=== PATIENT | male | born 1970 | race Caucasian/White ===

== ENCOUNTER → 2016-06-23 | Outpatient (CLI) | payer MEDICARE | END | disposition home or self-care (01) | LOC: YCFC.O 08:51 | PROVIDERS: ATTEND Nurse Practitioner Family | DX: E03.8 Other specified hypothyroidism (principal); E11.8 Type 2 diabetes mellitus with unspecified complications; E78.2 Mixed hyperlipidemia ==

== ENCOUNTER 2016-07-28 19:25 | Emergency (ER) | payer MEDICARE ==
[2016-07-28] MEDS ORDERED: LIDOCAINE VIS-MYLANTA 30 ML UD PO ONE (19:47)
[2016-07-28] MEDS ORDERED: ONDANSETRON ODT 8 MG TAB SL SCH ×3 (20:00→23:45)
--- NOTE | 2016-07-28 20:18 | RAD ---
PROCEDURE: Chest,2 Views CLINICAL HISTORY: epigastric pain INDICATION: Same as above COMPARISON: 01/04/2015 TECHNIQUE: PA and and lateral chest radiographs were obtained. FINDINGS: The dual-chamber left-sided pacemaker wires are stable There are no discrete airspace infiltrates, pneumothoraces or pleural effusions. The pulmonary vascularity is normal The cardiomediastinal silhouette is stable. IMPRESSION: There is no acute pleural-parenchymal process seen in the imaged lung benito. Place of interpretation: [facility]. Electronically signed by: Sai Sosa MD 07/28/2016 8:17 PM CDT
--- NOTE | 2016-07-28 20:19 | RAD ---
PROCEDURE: Abdomen Flat Upright Clinical History: epigastric pain Indication: Same as above Comparison: Chest x-ray done on the same day Technique: 4.0 views of the abdomen and pelvis were done. Findings: There is no gross evidence of free air in the abdomen or the pelvis . The small and large bowel gas pattern does not show any evidence of obstruction, ileus or bowel wall thickening. There is no visualization of radiopaque calculi in the outline of the urinary tract. The visualized lung bases are unremarkable . There is mild constipation. Impression: Mild constipation without any small or large bowel obstruction or ileus Location of Interpretation: [id number] Electronically signed by: Sai Sosa MD 07/28/2016 8:18 PM CDT
[2016-07-28] MEDS ORDERED: PROCHLORPERAZINE INJ 10 MG/2 ML VIAL IV ONE (21:26)
[2016-07-28] MEDS ORDERED: SODIUM CHLORIDE 0.9% 1000ML 1,000 ML IVS ONE (21:44)
--- NOTE | 2016-07-28 22:23 | CT ---
PROCEDURE: Abdomen/Pelvis w/Contrast HISTORY: upper abd pain, n/v, leukocytosis Indication: Same as above Comparison: None . Technique: CT of the abdomen and pelvis was done with intravenous contrast. Images were obtained from the lung base to the level of the pubic symphysis in axial plane, followed by orthogonal sagittal and coronal reconstruction. Oral contrast was not given for the study. The patient was injected with contrast intravenously, without any documented immediate adverse reactions. This exam was performed according to our departmental dose-optimization program, which includes automated exposure control, adjustment of the mA and/or KV according to the patient's size and/or use of iterative reconstruction technique. FINDINGS: Images through the lung bases do not show any focal infiltrates or pleural effusions. The entire right flank is not included on the current study as a result of patient's body habitus There is mild dilatation of the proximal small bowel with normal caliber mid and distal small bowel and may represent developing small bowel obstruction/small bowel ileus and needs to be followed up The liver, gallbladder, pancreas, spleen and the bilateral adrenal glands appear unremarkable. The bilateral kidneys enhance with contrast in a normal fashion. The urinary bladder is unremarkable . The bilateral ureters and the bilateral periureteral soft tissues and fat planes are unremarkable. There is no CT evidence of acute appendicitis, pericecal inflammatory change or ileocecal mesenteric adenitis. The ileocecal junction appears unremarkable. There is no CT evidence of acute colonic diverticulitis or colitis or large bowel obstruction. The splenic and portal veins are of normal caliber, without any filling defects. There is no pathological lymphadenopathy in the retroperitoneum or in the pelvic region. There is no evidence of free fluid or free air in the abdomen or the pelvic region. There is no clinically significant abdominal aortic aneurysm. There is no clinically significant inguinal or ventral hernia. The visualized lumbar spine shows mild degenerative change at L5/S1 level . The paravertebral soft tissues are unremarkable. The remainder of the pelvic structures are unremarkable. IMPRESSION: The entire right flank is not included on the current study as a result of patient's body habitus There is mild dilatation of the proximal small bowel with normal caliber mid and distal small bowel and may represent developing small bowel obstruction/small bowel ileus and needs to be followed up . Location of Interpretation: [facility]iology Electronically signed by: Sai Sosa MD 07/28/2016 10:23 PM CDT
[2016-07-28] MEDS ORDERED: PROMETHAZINE HCL 25 MG TAB PO ONE (22:43)
[2016-07-28] MEDS ORDERED: PANTOPRAZOLE SODIUM IV 40 MG VIAL IV ONE (22:43)
--- NOTE | 2016-07-28 23:56 | ED.PDOC ---
History of Present Illness - General Chief Complaint: Abdominal Pain Stated Complaint: epigastric pain,weakness,dizziness Time Seen by Provider: 07/28/16 19:40 Source: patient Exam Limitations: no limitations - History of Present Illness Initial Comments: The patient is a 45-year-old male presenting to the emergency room secondary to severe epigastric and right upper quadrant abdominal pain. Abdominal discomfort started this morning with some nausea. He has thrown up approximately 5-7 times during the day. Abdominal pain and nausea became progressively worse as the day went on. He did have some diarrhea yesterday. No definite fevers. No chest pain. The abdominal pain is quite severe. No blood in the vomitus. No blood in the stool. No recent trauma. Severity: severe Improving Factors: nothing Worsening Factors: eating Associated Symptoms: diaphoresis, loss of appetite, malaise, nausea/vomiting, weakness Allergies/Adverse Reactions: Allergies NO KNOWN ALLERGY Allergy (Verified 01/04/15 18:02) Home Medications: Ambulatory Orders Aspirin [Familia Chewable Low Dose] 81 mg PO DAILY #0 11/10/12 Fluoxetine HCl [Prozac] 20 mg PO DAILY #0 11/10/12 Furosemide [Lasix] 20 mg PO DAILY #0 11/10/12 Potassium Chloride Tab [K-Dur] 20 meq PO DAILY #0 11/10/12 Atorvastatin Calcium [Lipitor] 40 mg PO DAILY 08/07/13 Carvedilol 25 mg PO BID 08/07/13 Spironolactone [Aldactone] 25 mg PO DAILY 08/07/13 Levothyroxine Sodium 150 mcg PO DAILY 01/04/15 Lisinopril [Prinivil] 20 mg PO DAILY 01/04/15 Metformin HCl 500 mg PO BID 01/04/15 Amoxicillin & Pot Clavulanate [Augmentin] 875 mg PO BID #20 tab 12/15/15 Beta Silva 12/15/15 Docusate Sodium [Stool Softener] 100 mg PO KVNG-OTH-DAY 12/15/15 Insulin Glargine [Lantus Solostar] 16 unit SC BEDTIME 12/15/15 Insulin Lispro [Humalog] 0 - 15 unit SUBCU TIDFDHS 12/15/15 Ondansetron [Zofran Odt] 4 mg PO Q4H PRN #10 tab 05/10/17 Review of Systems - Review of Systems Constitutional: States: malaise, weakness EENTM: States: no symptoms reported Respiratory: States: no symptoms reported Cardiology: States: no symptoms reported Gastrointestinal/Abdominal: States: abdominal pain, diarrhea, nausea, vomiting Genitourinary: States: no symptoms reported Musculoskeletal: States: no symptoms reported Skin: States: no symptoms reported Neurological: States: anxiety Endocrine: States: increased thirst All other Systems: No Change from Baseline Past Medical History (General) - Patient Medical History Hx Seizures: No Hx Stroke: No Hx Asthma: No Hx of COPD: No Hx Cardiac Disorders: Yes Hx Congestive Heart Failure: Yes Hx Pacemaker: Yes Hx Hypertension: Yes Hx Thyroid Disease: Yes Hx Diabetes: Yes Hx Gastroesophageal Reflux: Yes Hx MRSA: Yes MRSA Source:: Wound Surgical History: pacemaker - Vaccination History Hx Tetanus, Diphtheria Vaccination: No Hx Influenza Vaccination: Yes Hx Pneumococcal Vaccination: Yes - Social History Hx Tobacco Use: Yes Hx Chewing Tobacco Use: No Hx Alcohol Use: Yes - quit many years ago Hx Substance Use: Yes - quit many years ago Hx Physical Abuse: No Hx Emotional Abuse: No Hx Suspected Abuse: No Family Medical History - Family History Mother Living Status: Cause of : colon CA Hx Family Congestive Heart Failure: Yes Hx Family Hypertension: Yes Hx Family Diabetes: Yes Hx Family Cancer: Yes Father Living Status: Cause of : lung CA Hx Family Congestive Heart Failure: Yes Hx Family Hypertension: Yes Physical Exam - Physical Exam General Appearance: Alert, Obvious distress, Ill Appearing - vomiting Eye Exam: bilateral normal Ears, Nose, Throat: hearing grossly normal, normal ENT inspection, normal pharynx Neck: non-tender, full range of motion, supple Respiratory: chest non-tender, lungs clear, normal breath sounds, no respiratory distress, no accessory muscle use Cardiovascular/Chest: normal peripheral pulses, no edema, tachycardia Peripheral Pulses: radial,right: 2+, radial,left: 2+, dorsalis pedis,right: 2+, dorsalis pedis,left: 2+ Gastrointestinal/Abdominal: other - the patient has presented significant epigastric and right upper quadrant discomfort to palpation. Definite palpable masses. No bruising. 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 The patient received anti-emetics along with IV fluids and some Protonix. Over approximately 6-7 hours the patient's symptoms improved significantly. CT scan was reassuring. The patient needs to add Pepcid 20 mg twice daily to the stomach medication that he is already taking for one week. He needs to also get Maalox to use additionally for reflux symptoms as needed. He needs to keep well-hydrated. He needs to eat small meals and a bland diet. He needs to control his blood sugars tightly. He will be written for Zofran for as needed use to control vomiting. He needs to follow-up with his primary care doctor before the weekend. ER warnings were given for any acute worsening. - Results/Orders Results/Orders: Laboratory Tests 07/28/16 07/28/16 07/28/16 19:45 19:45 19:45 WBC 15.9 H RBC 5.56 Hgb 16.6 Hct 49.5 MCV 88.9 MCH 29.8 MCHC 33.5 RDW 14.1 Plt Count 325 MPV 8.2 Absolute Neuts (auto) 13.00 H Absolute Lymphs (auto) 2.00 Absolute Monos (auto) 0.80 Absolute Eos (auto) 0.10 Absolute Basos (auto) 0.10 Neutrophils % 81.5 H Lymphocytes % 12.7 L Monocytes % 5.0 Eosinophils % 0.5 L Basophils % 0.3 PT 11.5 INR 1.020 PTT (SP) 32.7 Sodium 134 L Potassium 4.5 Chloride 97 L Carbon Dioxide 27 Anion Gap 14.5 BUN 21 H Creatinine 1.02 BUN/Creatinine Ratio 20.6 H POC Glucose Random Glucose 201 H Serum Osmolality 276.9 Lactic Acid Calcium 9.3 Magnesium 1.5 L Total Bilirubin 1.0 AST 104 H ALT 120 H Alkaline Phosphatase 52 Creatine Kinase 74 CK-MB (CK-2) 1.8 CK-MB (CK-2) % Not Reportable Troponin I < 0.02 B-Natriuretic Peptide < 5.0 Serum Total Protein 8.3 H Albumin 4.5 Globulin 3.8 H Albumin/Globulin Ratio 1.2 Amylase 29 Lipase 26 07/28/16 07/28/16 19:55 21:55 WBC RBC Hgb Hct MCV MCH MCHC RDW Plt Count MPV Absolute Neuts (auto) Absolute Lymphs (auto) Absolute Monos (auto) Absolute Eos (auto) Absolute Basos (auto) Neutrophils % Lymphocytes % Monocytes % Eosinophils % Basophils % PT INR PTT (SP) Sodium Potassium Chloride Carbon Dioxide Anion Gap BUN Creatinine BUN/Creatinine Ratio POC Glucose 164 H Random Glucose Serum Osmolality Lactic Acid 1.9 Calcium Magnesium Total Bilirubin AST ALT Alkaline Phosphatase Creatine Kinase CK-MB (CK-2) CK-MB (CK-2) % Troponin I B-Natriuretic Peptide Serum Total Protein Albumin Globulin Albumin/Globulin Ratio Amylase Lipase x-ray shows nonspecific bowel gas pattern. CT scan of abdomen and pelvis shows mild dilation of the proximal small bowel. This is consistent possibly with an early ileus. Departure - Departure Clinical Impression: Gastroenteritis, Dehydration, mild Disposition: Discharge to Home or Self Care Condition: Fair Departure Forms: ED Discharge - Pt. Copy, Patient Portal Self Enrollment Instructions: DI for Viral Gastroenteritis -- Adult Diet: bland diet, diabetic diet Activity: increase activity as tolerated Referrals: Lizet Suero NP [Primary Care Provider] - 1-5 Days Prescriptions: Ondansetron [Zofran Odt] 4 mg PO Q4H PRN #10 tab PRN Reason: Vomiting Home Medications: Ambulatory Orders Aspirin [Familia Chewable Low Dose] 81 mg PO DAILY #0 11/10/12 Fluoxetine HCl [Prozac] 20 mg PO DAILY #0 11/10/12 Furosemide [Lasix] 20 mg PO DAILY #0 11/10/12 Potassium Chloride Tab [K-Dur] 20 meq PO DAILY #0 11/10/12 Atorvastatin Calcium [Lipitor] 40 mg PO DAILY 08/07/13 Carvedilol 25 mg PO BID 08/07/13 Spironolactone [Aldactone] 25 mg PO DAILY 08/07/13 Levothyroxine Sodium 150 mcg PO DAILY 01/04/15 Lisinopril [Prinivil] 20 mg PO DAILY 01/04/15 Metformin HCl 500 mg PO BID 01/04/15 Amoxicillin & Pot Clavulanate [Augmentin] 875 mg PO BID #20 tab 12/15/15 Beta Silva 12/15/15 Docusate Sodium [Stool Softener] 100 mg PO KVNG-OTH-DAY 12/15/15 Insulin Glargine [Lantus Solostar] 16 unit SC BEDTIME 12/15/15 Insulin Lispro [Humalog] 0 - 15 unit SUBCU TIDFDHS 12/15/15 Ondansetron [Zofran Odt] 4 mg PO Q4H PRN #10 tab 07/29/16 Additional Instructions: the patient is a 45-year-old male presenting secondary to nausea and vomiting and abdominal pain with some [id number] dehydration. The patient received anti-emetics along with IV fluids and some Protonix. Over approximately 6-7 hours the patient's symptoms improved significantly. CT scan was reassuring. The patient needs to add Pepcid 20 mg twice daily to the stomach medication that he is already taking for one week. He needs to also get Maalox to use additionally for reflux symptoms as needed. He needs to keep well-hydrated. He needs to eat small meals and a bland diet. He needs to control his blood sugars tightly. He will be written for Zofran for as needed use to control vomiting. He needs to follow-up with his primary care doctor before the weekend. ER warnings were given for any acute worsening. He should probably also hold his metformin and atorvastatin for the next 4 or 5 days to prevent complications from these medications.
[2016-07-29 01:05] VITALS: BP 138/79; TEMP 97.2; O2SAT 97
== END 2016-07-29 00:25 | disposition home or self-care (01) ==
LOC: ER 19:25
DX: Z87.891 Personal history of nicotine dependence (principal); I11.0 Hypertensive heart disease with heart failure; I50.9 Heart failure, unspecified; E11.9 Type 2 diabetes mellitus without complications; K21.9 Gastro-esophageal reflux disease without esophagitis; Z86.14 Personal history of Methicillin resistant Staphylococcus aureus infection; Z80.1 Family history of malignant neoplasm of trachea, bronchus and lung; Z80.0 Family history of malignant neoplasm of digestive organs; Z79.4 Long term (current) use of insulin; Z79.899 Other long term (current) drug therapy; Z79.82 Long term (current) use of aspirin
CPT/HCPCS: 36415; 71020; 74010; 74177; 80053; 82150; 82550; 82553; 82948; 83605; 83690; 83735; 83880; 84484; 85025; 85610; 85730; 87040; 93005; J0780; J7030; Q0169

== ENCOUNTER → 2016-09-04 | Outpatient (CLI) | payer MEDICARE | END | disposition home or self-care (01) | LOC: LAB.O 10:53 | PROVIDERS: ATTEND Nurse Practitioner Family | DX: E03.8 Other specified hypothyroidism (principal) ==

== ENCOUNTER → 2016-10-14 | Outpatient (CLI) | payer MEDICARE | END | disposition home or self-care (01) | LOC: YCFC.O 10:57 | PROVIDERS: ATTEND Nurse Practitioner Family | DX: E11.8 Type 2 diabetes mellitus with unspecified complications (principal); R74.8 Abnormal levels of other serum enzymes; E78.2 Mixed hyperlipidemia ==

== ENCOUNTER → 2016-12-14 | Outpatient (CLI) | payer MEDICARE | END | disposition home or self-care (01) | LOC: YCFC.O 09:28 | PROVIDERS: ATTEND Anesthesiology Pain Medicine | DX: Z79.891 Long term (current) use of opiate analgesic (principal) ==

== ENCOUNTER → 2016-12-24 | Outpatient (CLI) | payer MEDICARE ==
--- NOTE | 2016-12-26 18:15 | CT ---
Procedure: CT THORACIC SPINE WITHOUT IV CONTRAST Exam date: 12/24/2016 9:35 AM CDT Ordering Provider: Ubaldo Lauren Clinical Indication: THORACIC RADICULOPATHY Comparison: None Technique: Using a multislice scanner, sequential axial imaging was obtained of the thoracic spine. 2D sagittal and coronal reconstructed images were obtained. Findings: There is no acute fracture. Sagittal and coronal alignment is normal. Vertebral body heights and intervertebral disc spaces are normal. There is no osseous spinal canal nor neural foraminal narrowing. There is no lytic or sclerotic lesion. There is no paraspinal hematoma. The prevertebral soft tissues are normal. IMPRESSION 1. Negative CT scan of the lumbar spine. Electronically signed by: Vj May MD 12/26/2016 6:13 PM CDT
--- NOTE | 2016-12-26 18:16 | CT ---
Procedure: CT LUMBAR SPINE WITHOUT IV CONTRAST Exam date: 12/24/2016 9:35 AM CDT Ordering Provider: Ubaldo Lauren Clinical Indication: LUMBAR RADICULOPATHY Comparison: None Technique: Using a multislice scanner, sequential axial imaging was obtained of the lumbar spine. 2D sagittal and coronal reconstructed images were obtained. Findings: There is no acute fracture. Sagittal and coronal alignment is normal. Vertebral body heights are normal. Degenerative disc findings seen at L4-L5 with vacuum disc phenomenon and broad-based disc bulge at L5-S1. There is no osseous spinal canal nor neural foraminal narrowing. There is no lytic or sclerotic lesion. There is no paraspinal hematoma. The prevertebral soft tissues are normal. IMPRESSION 1. Mild lumbar spondylosis. Otherwise, nonacute CT scan of the lumbar spine. Electronically signed by: Vj May MD 12/26/2016 6:15 PM CDT
== END | disposition home or self-care (01) ==
LOC: CT 09:25
PROVIDERS: ATTEND Anesthesiology Pain Medicine
DX: M51.26 Other intervertebral disc displacement, lumbar region (principal); M54.14 Radiculopathy, thoracic region

== ENCOUNTER 2017-01-11 05:00 | Day surgery (SDC) | payer MEDICARE ==
[2017-01-11] MEDS ORDERED: SODIUM CHLORIDE 0.9% 10 ML VIAL ONE (10:55)
[2017-01-11] MEDS ORDERED: methylPREDNISolone ACETATE 80 MG/ML VIAL ONE (10:56)
[2017-01-11] MEDS ORDERED: LIDOCAINE 1% MPF 5 ML VIAL ONE (10:56)
[2017-01-11] MEDS: SODIUM BICARBONATE VIAL 50 MEQ/50 ML VIAL ONE ×2 (13:17→14:15)
[2017-01-11] MEDS ORDERED: BUPIVACAINE 0.25% INJ 30 ML VIAL INJ ONE (13:17)
[2017-01-11 13:32] VITALS: BP 119/82; TEMP 98.4; O2SAT 97
== END 2017-01-11 13:30 | disposition home or self-care (01) ==
LOC: AMB 05:00
PROVIDERS: ATTEND Anesthesiology Pain Medicine
DX: M51.16 Intervertebral disc disorders with radiculopathy, lumbar region (principal); M54.5 Low back pain; E03.9 Hypothyroidism, unspecified; E11.40 Type 2 diabetes mellitus with diabetic neuropathy, unspecified; E78.00 Pure hypercholesterolemia, unspecified; G47.33 Obstructive sleep apnea (adult) (pediatric); I42.9 Cardiomyopathy, unspecified; I11.0 Hypertensive heart disease with heart failure; I50.21 Acute systolic (congestive) heart failure; K21.9 Gastro-esophageal reflux disease without esophagitis; M54.14 Radiculopathy, thoracic region; Z68.42 Body mass index [BMI] 45.0-49.9, adult; E66.2 Morbid (severe) obesity with alveolar hypoventilation; Z87.891 Personal history of nicotine dependence; Z79.899 Other long term (current) drug therapy
CPT/HCPCS: 36415; 64483; 64484; 76000; 80053; 83036; 85025; J1030

== ENCOUNTER → 2017-01-26 | Outpatient (CLI) | payer MEDICARE | END | disposition home or self-care (01) | LOC: YCFC.O 15:50 | PROVIDERS: ATTEND Anesthesiology Pain Medicine | DX: Z79.891 Long term (current) use of opiate analgesic (principal) ==

== ENCOUNTER 2017-03-01 05:43 | Day surgery (SDC) | payer MEDICARE ==
[2017-03-01] MEDS ORDERED: SODIUM BICARBONATE VIAL 50 MEQ/50 ML VIAL ONE (11:23)
[2017-03-01] MEDS ORDERED: SODIUM CHLORIDE 0.9% 10 ML VIAL ONE (11:23)
[2017-03-01] MEDS ORDERED: methylPREDNISolone ACETATE 80 MG/ML VIAL ONE (11:23)
[2017-03-01] MEDS: LIDOCAINE 1% MPF 5 ML VIAL ONE ×2 (13:33→13:35)
[2017-03-01 14:09] VITALS: BP 172/99; TEMP 97.2; O2SAT 95
== END 2017-03-01 13:45 | disposition home or self-care (01) ==
LOC: AMB 05:43
PROVIDERS: ATTEND Anesthesiology Pain Medicine
DX: M51.16 Intervertebral disc disorders with radiculopathy, lumbar region (principal); M54.5 Low back pain; E03.9 Hypothyroidism, unspecified; E11.40 Type 2 diabetes mellitus with diabetic neuropathy, unspecified; E78.00 Pure hypercholesterolemia, unspecified; D64.9 Anemia, unspecified; F32.9 Major depressive disorder, single episode, unspecified; E66.2 Morbid (severe) obesity with alveolar hypoventilation; Z79.84 Long term (current) use of oral hypoglycemic drugs; Z68.42 Body mass index [BMI] 45.0-49.9, adult; G47.33 Obstructive sleep apnea (adult) (pediatric); I25.10 Atherosclerotic heart disease of native coronary artery without angina pectoris; I11.0 Hypertensive heart disease with heart failure; I50.21 Acute systolic (congestive) heart failure; K21.9 Gastro-esophageal reflux disease without esophagitis; I25.2 Old myocardial infarction; Z87.891 Personal history of nicotine dependence; Z79.899 Other long term (current) drug therapy
CPT/HCPCS: 62323; 76000; J1030

== ENCOUNTER 2019-01-04 10:07 | Emergency (ER) | payer MEDICARE ==
[2019-01-04] MEDS ORDERED: ASPIRIN (CHEWABLE) 81 MG TAB ONE (10:12)
[2019-01-04] MEDS ORDERED: NITROGLYCERIN 0.4 MG 25 EA TAB SL ONE ×2 (10:12→10:20)
[2019-01-04 10:16] VITALS: TEMP 98
[2019-01-04] MEDS ORDERED: SODIUM CHLORIDE 0.9% (FLUSH) 10 ML SYG IV PRN (10:20)
[2019-01-04] MEDS ORDERED: ONDANSETRON INJ 4 MG/2 ML VIAL IV ONE (10:20)
--- NOTE | 2019-01-04 10:24 | ED.PDOC ---
History of Present Illness - General Chief Complaint: Chest Pain/IA Stated Complaint: Chest pain, vomiting Time Seen by Provider: 01/04/19 10:20 Source: patient, RN notes reviewed, Vital Signs reviewed, family Exam Limitations: no limitations - History of Present Illness Timing/Duration: other - Started at 0500 awakening from sleep Severity/Quality: other - 08/29, sharp Location: central Chest Pain Radiation: no radiation Activities at Onset: sleep Prior Chest Pain/Cardiac Workup: cardiac cath, echocardiography, heart attack Improving Factors: nothing Worsening Factors: nothing Nitro Today/Relief: 0.4 mg x 1 Aspirin Treatment Today: 81 mg x 1 Associated Symptoms: nausea/vomiting Allergies/Adverse Reactions: Allergies NO KNOWN ALLERGY Allergy (Verified 01/04/15 18:02) Home Medications: Ambulatory Orders Aspirin [Familia Chewable Low Dose] 81 mg PO DAILY #0 11/10/12 Fluoxetine HCl [Prozac] 20 mg PO DAILY #0 11/10/12 Furosemide [Lasix] 20 mg PO DAILY #0 11/10/12 Potassium Chloride Tab [K-Dur] 20 meq PO DAILY #0 11/10/12 Atorvastatin Calcium [Lipitor] 40 mg PO DAILY 08/07/13 Carvedilol 25 mg PO BID 08/07/13 Spironolactone [Aldactone] 25 mg PO DAILY 08/07/13 Levothyroxine Sodium 150 mcg PO DAILY 01/04/15 Lisinopril [Prinivil] 20 mg PO DAILY 01/04/15 Metformin HCl 500 mg PO BID 01/04/15 Amoxicillin & Pot Clavulanate [Augmentin] 875 mg PO BID #20 tab 12/15/15 Beta Silva 12/15/15 Docusate Sodium [Stool Softener] 100 mg PO KVNG-OTH-DAY 12/15/15 Insulin Glargine [Lantus Solostar] 16 unit SC BEDTIME 12/15/15 Insulin Lispro [Humalog] 0 - 15 unit SUBCU TIDFDHS 12/15/15 Ondansetron [Zofran Odt] 4 mg PO Q4H PRN #10 tab 07/29/16 Review of Systems - Review of Systems Constitutional: States: no symptoms reported EENTM: States: no symptoms reported Respiratory: States: no symptoms reported Cardiology: States: see HPI Gastrointestinal/Abdominal: States: see HPI Genitourinary: States: no symptoms reported Musculoskeletal: States: no symptoms reported Skin: States: no symptoms reported Endocrine: States: no symptoms reported Past Medical History (General) - Patient Medical History Hx Seizures: No Hx Stroke: No Hx Asthma: No Hx of COPD: No Hx Cardiac Disorders: Yes - IA x 2; dyslipidemia Hx Congestive Heart Failure: Yes Hx Pacemaker: Yes - Pacemaker/defib Hx Hypertension: Yes Hx Thyroid Disease: Yes Hx Diabetes: Yes Hx Gastroesophageal Reflux: Yes Hx MRSA: No MRSA Source:: Wound Surgical History: pacemaker - Vaccination History Hx Tetanus, Diphtheria Vaccination: No Hx Influenza Vaccination: No Hx Pneumococcal Vaccination: Yes - Social History Hx Tobacco Use: Yes - Quit 2008 Hx Chewing Tobacco Use: No Hx Alcohol Use: No Hx Substance Use: Yes - quit many years ago Hx Physical Abuse: No Hx Emotional Abuse: No Hx Suspected Abuse: No Family Medical History - Family History Mother Living Status: Cause of : colon CA Hx Family Congestive Heart Failure: Yes Hx Family Hypertension: Yes Hx Family Diabetes: Yes Hx Family Cancer: Yes Father Living Status: Cause of : lung CA Hx Family Congestive Heart Failure: Yes Hx Family Hypertension: Yes Physical Exam - Physical Exam General Appearance: Alert, Comfortable Eyes, Ears, Nose, Throat Exam: normal ENT inspection Neck: full range of motion Respiratory: chest non-tender, lungs clear Cardiovascular/Chest: normal peripheral pulses, regular rate, rhythm Gastrointestinal/Abdominal: soft, other - obese pannus Extremity: normal range of motion 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 Had 2 repeat troponins which were unremarkable. EKG with LBBB but no criteria for Sgarbossa. Ddimer was elevated. CTA chest was not timed well for contrast but no large PE. Lower extremity doppler without DVT. Heart score 4. Patient's pain resolved here in the ER with nitro. I advised him to follow up with PCP and cardiology in the next week. He was given ER warnings for chest pain, hemoptysis, SOB, lower extremity swelling, fever. Departure - Departure Clinical Impression: Chest pain Time of Disposition: 14:51 Disposition: Discharge to Home or Self Care Condition: Excellent Departure Forms: ED Discharge - Pt. Copy, Patient Portal Self Enrollment Instructions: DI for Chest Pain Diet: resume usual diet Activity: increase activity as tolerated Referrals: Lizet Suero NP [Nurse Practitioner] - 1-2 Days Home Medications: Ambulatory Orders Aspirin [Familia Chewable Low Dose] 81 mg PO DAILY #0 11/10/12 Fluoxetine HCl [Prozac] 20 mg PO DAILY #0 11/10/12 Furosemide [Lasix] 20 mg PO DAILY #0 11/10/12 Potassium Chloride Tab [K-Dur] 20 meq PO DAILY #0 11/10/12 Atorvastatin Calcium [Lipitor] 40 mg PO DAILY 08/07/13 Carvedilol 25 mg PO BID 08/07/13 Spironolactone [Aldactone] 25 mg PO DAILY 08/07/13 Levothyroxine Sodium 150 mcg PO DAILY 01/04/15 Lisinopril [Prinivil] 20 mg PO DAILY 01/04/15 Metformin HCl 500 mg PO BID 01/04/15 Amoxicillin & Pot Clavulanate [Augmentin] 875 mg PO BID #20 tab 12/15/15 Beta Silva 12/15/15 Docusate Sodium [Stool Softener] 100 mg PO KVNG-OTH-DAY 12/15/15 Insulin Glargine [Lantus Solostar] 16 unit SC BEDTIME 12/15/15 Insulin Lispro [Humalog] 0 - 15 unit SUBCU TIDFDHS 12/15/15 Ondansetron [Zofran Odt] 4 mg PO Q4H PRN #10 tab 07/29/16 Comments: follow up with [facility]
[2019-01-04] MEDS ORDERED: ASPIRIN (CHEWABLE) 81 MG TAB PO ONE (10:29)
--- NOTE | 2019-01-04 11:30 | RAD ---
EXAM DESCRIPTION: Chest,1 View CLINICAL HISTORY: Chest pain FINDINGS/ IMPRESSION: Comparison 07/28/2016 Cardiac pacemaker. Heart is top limits normal in size. Normal mediastinal contour. No edema, infiltrates or effusions. No pneumothorax Electronically signed by: Jcarlos Louis MD 01/04/2019 11:28 AM CDT
--- NOTE | 2019-01-04 12:37 | CT ---
EXAM DESCRIPTION: CTA Chest CLINICAL HISTORY: Chest pain, elevated Ddimer COMPARISON: None. TECHNIQUE: Postcontrast CT images of the chest are obtained using pulmonary embolism imaging protocol. Three-D MIP reconstructed images of the arterial vasculature are obtained. Coronal and sagittal reconstructed images of the also provided. This exam was performed according to our departmental dose-optimization program, which includes automated exposure control, adjustment of the mA and/or kV according to patient size and/or use of iterative reconstruction technique . FINDINGS: Exam is technically limited secondary to poor opacification of the pulmonary arterial vasculature related to timing of the bolus contrast. Dense opacification of contrast is seen in the right clavian vein to superior vena cava. Left subclavian dual-lead transvenous cardiac pacemaker is seen. Thoracic aorta shows no aneurysmal dilatation or dissection. 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 No large pulmonary emboli are seen in the central pulmonary arteries. No pathologically enlarged mediastinal, hilar, or axillary lymphadenopathy seen.. No pleural or pericardial effusion. Visualized portion of the upper abdomen shows enlargement of the liver measuring 20.7 cm. Spleen is enlarged at 15 cm. Mildly prominent lymph nodes in the periportal region are seen. Lungs are hypoaerated. No acute infiltrate or consolidation. No worrisome pulmonary nodules. Scattered calcified pulmonary nodules are seen bilaterally suggesting old granulomatous disease. Osseous structures show no aggressive bony lesions. Mild spondylitic changes of the spine are seen. Mild bilateral gynecomastia. IMPRESSION: CT of the chest is nondiagnostic for pulmonary embolism secondary to timing of bolus contrast and poor opacification of the pulmonary arteries. Consider repeat exam in 24 hours or repeat exam with 50 mL contrast and improved timing if the patient has normal renal function and creatinine level.. Left subclavian transvenous cardiac pacemaker. No acute findings on CT of chest. Evidence of old granulomatous disease. Electronically signed by: Philip Ortiz MD 01/04/2019 12:35 PM CDT
[2019-01-04] MEDS ORDERED: ACETAMINOPHEN W/COD #3 TAB 1 EA TAB PO ONE (13:32)
--- NOTE | 2019-01-04 14:42 | US ---
EXAM DESCRIPTION: Venous,Lower Extremity LT (accession [id number]), Venous,Lower Extremity RT (accession [id number]): Ultrasound. CLINICAL HISTORY: Elevated D-dimer COMPARISON: None Available. TECHNIQUE: Two -dimensional and doppler sonographic evaluation of the deep venous system of the bilateral lower extremities. FINDINGS: Doppler evaluation shows normal color flow and normal phasicity and augmentation of the bilateral common femoral veins, junctions with the bilateral proximal saphenous veins, femoral veins, popliteal veins, greater saphenous veins junction with the common femoral veins, peroneal and posterior tibial veins. These veins showed normal occlusion with transducer pressure. Two-dimensional survey showed no echogenic clot within these veins. IMPRESSION: Duplex ultrasound evaluation of the bilateral lower extremity deep venous systems showing no evidence of thrombosis. Electronically signed by: Michael Osuna MD 01/04/2019 2:41 PM CDT
--- NOTE | 2019-01-04 14:42 | US ---
EXAM DESCRIPTION: Venous,Lower Extremity LT (accession [id number]), Venous,Lower Extremity RT (accession [id number]): Ultrasound. CLINICAL HISTORY: Elevated D-dimer COMPARISON: None Available. TECHNIQUE: Two -dimensional and doppler sonographic evaluation of the deep venous system of the bilateral lower extremities. FINDINGS: Doppler evaluation shows normal color flow and normal phasicity and augmentation of the bilateral common femoral veins, junctions with the bilateral proximal saphenous veins, femoral veins, popliteal veins, greater saphenous veins junction with the common femoral veins, peroneal and posterior tibial veins. These veins showed normal occlusion with transducer pressure. Two-dimensional survey showed no echogenic clot within these veins. IMPRESSION: Duplex ultrasound evaluation of the bilateral lower extremity deep venous systems showing no evidence of thrombosis. Electronically signed by: Michale Osuna MD 01/04/2019 2:41 PM CDT
[2019-01-04 16:08] VITALS: BP 116/79; O2SAT 93
== END 2019-01-04 14:35 | disposition home or self-care (01) ==
LOC: ER 10:07 → SUPCPDRO 10:07 → ER 14:35
DX: R07.9 Chest pain, unspecified (principal); R11.2 Nausea with vomiting, unspecified; I44.7 Left bundle-branch block, unspecified; I25.2 Old myocardial infarction; E78.5 Hyperlipidemia, unspecified; I50.9 Heart failure, unspecified; I11.0 Hypertensive heart disease with heart failure; E07.9 Disorder of thyroid, unspecified; E11.9 Type 2 diabetes mellitus without complications; K21.9 Gastro-esophageal reflux disease without esophagitis; Z95.0 Presence of cardiac pacemaker; Z79.899 Other long term (current) drug therapy; Z79.4 Long term (current) use of insulin; Z79.82 Long term (current) use of aspirin; Z87.891 Personal history of nicotine dependence
CPT/HCPCS: 36415; 71045; 71275; 80048; 82550; 82553; 83880; 84484; 85025; 85379; 85610; 85730; 93005; 93971; J2405

== ENCOUNTER 2019-02-13 17:02 | Emergency (ER) | payer MEDICARE ==
[2019-02-13] MEDS ORDERED: KETOROLAC TROMETHAMINE INJ 60 MG/2 ML VIAL IM ONE (17:39)
--- NOTE | 2019-02-13 17:42 | ED.PDOC ---
History of Present Illness - General Stated Complaint: my right knee hurts Time Seen by Provider: 02/13/19 17:37 Source: patient, RN notes reviewed, Vital Signs reviewed, family Exam Limitations: no limitations Additional Information: this is a 48-year-old white male who presents to the ED with complaints of right knee pain. He states 2 weeks ago he fell and hyperflexed the right knee. He states that he has had history of syncopal episodes that is being worked up by his PCP. He states that he has not seen anybody for the knee yet. He has been taking ibuprofen for it daily. Takes approximately 800 mg each time. He has been able to walk but with a antalgic gait. pain is worse with flexion. He has never injured this knee in the past. Patient is 380 pounds. - History of Present Illness Allergies/Adverse Reactions: Allergies NO KNOWN ALLERGY Allergy (Verified 01/04/15 18:02) Home Medications: Ambulatory Orders Aspirin [Familia Chewable Low Dose] 81 mg PO DAILY #0 11/10/12 Fluoxetine HCl [Prozac] 20 mg PO DAILY #0 11/10/12 Furosemide [Lasix] 20 mg PO DAILY #0 11/10/12 Atorvastatin Calcium [Lipitor] 40 mg PO DAILY 08/07/13 Carvedilol 25 mg PO BID 08/07/13 Spironolactone [Aldactone] 25 mg PO DAILY 08/07/13 Levothyroxine Sodium 150 mcg PO DAILY 01/04/15 Lisinopril [Prinivil] 20 mg PO DAILY 01/04/15 Metformin HCl 500 mg PO BID 01/04/15 Docusate Sodium [Stool Softener] 100 mg PO KVNG-OTH-DAY 12/15/15 Insulin Glargine [Lantus Solostar] 30 unit SC BEDTIME 12/15/15 Insulin Lispro [Humalog] 0 - 15 unit SUBCU TIDFDHS 12/15/15 Ondansetron [Zofran Odt] 4 mg PO Q4H PRN #10 tab 07/29/16 ARIPiprazole [Abilify] 5 mg PO DAILY 02/13/19 Acetaminophen W/ Codeine [Tylenol W/ CODEINE #3] 1 ea PO BID 02/13/19 Acetaminophen W/ Codeine [Tylenol W/ CODEINE #3] 1 ea PO Q8HRS #20 02/13/19 Amiodarone HCl 200 mg PO DAILY 02/13/19 Saxagliptin HCl [Onglyza] 5 mg PO DAILY 02/13/19 Simvastatin 20 mg PO DAILY 02/13/19 tiZANidine [Zanaflex] 4 mg PO TID 02/13/19 Review of Systems - Review of Systems Constitutional: States: no symptoms reported Musculoskeletal: States: other - right knee pain with soreness and stiffness Skin: States: no symptoms reported All other Systems: Reviewed and Negative, No Change from Baseline Past Medical History (General) - Patient Medical History Hx Seizures: No Hx Stroke: No Hx Asthma: No Hx of COPD: No Hx Cardiac Disorders: Yes - [place] x 2; dyslipidemia Hx Congestive Heart Failure: Yes Hx Pacemaker: Yes - Pacemaker/defib Hx Hypertension: Yes Hx Thyroid Disease: Yes Hx Diabetes: Yes Hx Gastroesophageal Reflux: Yes Hx MRSA: No MRSA Source:: Wound - Vaccination History Hx Tetanus, Diphtheria Vaccination: No Hx Influenza Vaccination: No Hx Pneumococcal Vaccination: Yes - Social History Hx Tobacco Use: Yes - Quit 2008 Hx Chewing Tobacco Use: No Hx Alcohol Use: No Hx Substance Use: Yes - quit many years ago Hx Physical Abuse: No Hx Emotional Abuse: No Hx Suspected Abuse: No Family Medical History - Family History Mother Living Status: Cause of : colon CA Hx Family Congestive Heart Failure: Yes Hx Family Hypertension: Yes Hx Family Diabetes: Yes Hx Family Cancer: Yes Father Living Status: Cause of : lung CA Hx Family Congestive Heart Failure: Yes Hx Family Hypertension: Yes Physical Exam - Physical Exam General Appearance: Alert, No apparent distress Knee: ecchymosis - medially, limited ROM, soft tissue tenderness, swelling, other - evidence of pain to the medial knee with pain on valgus stressing drawer signs were limited the due to pain Progress - Progress Progress: 02/13/19 17:44 get x-ray evaluation and treat pain with Toradol. If negative x-rays will place a knee immobilizer and use crutches and get ortho referral. 02/13/19 18:14 informed patient of the results. His pain is improving. He is being fitted into a knee immobilizer and getting crutch training. Will follow up with ortho. - Results/Orders Results/Orders: FINDINGS: Minimal patellofemoral joint arthritis is observed. No joint effusion is seen. No fracturing is detected. IMPRESSION: Mild patellofemoral joint arthritis is observed. Electronically signed by: John Garcia MD 02/13/2019 5:59 PM [employer] Departure - Departure Clinical Impression: Sprain of right knee Qualifiers: Encounter type: initial encounter Involved ligament of knee: unspecified ligament Qualified Code(s): S83.91XA - Sprain of unspecified site of right knee, initial encounter Time of Disposition: 18:15 Disposition: Discharge to Home or Self Care Condition: Good Departure Forms: ED Discharge - Pt. Copy, Patient Portal Self Enrollment Instructions: DI for Knee Pain Activity: other - ambulate with the use of crutches Referrals: Wilfred Castro MD [Primary Care Provider] - 1-2 Weeks Prescriptions: Acetaminophen W/ Codeine [Tylenol W/ CODEINE #3] 1 ea PO Q8HRS #20 Home Medications: Ambulatory Orders Aspirin [Familia Chewable Low Dose] 81 mg PO DAILY #0 11/10/12 Fluoxetine HCl [Prozac] 20 mg PO DAILY #0 11/10/12 Furosemide [Lasix] 20 mg PO DAILY #0 11/10/12 Atorvastatin Calcium [Lipitor] 40 mg PO DAILY 08/07/13 Carvedilol 25 mg PO BID 08/07/13 Spironolactone [Aldactone] 25 mg PO DAILY 08/07/13 Levothyroxine Sodium 150 mcg PO DAILY 01/04/15 Lisinopril [Prinivil] 20 mg PO DAILY 01/04/15 Metformin HCl 500 mg PO BID 01/04/15 Docusate Sodium [Stool Softener] 100 mg PO KVNG-OTH-DAY 12/15/15 Insulin Glargine [Lantus Solostar] 30 unit SC BEDTIME 12/15/15 Insulin Lispro [Humalog] 0 - 15 unit SUBCU TIDFDHS 12/15/15 Ondansetron [Zofran Odt] 4 mg PO Q4H PRN #10 tab 07/29/16 ARIPiprazole [Abilify] 5 mg PO DAILY 02/13/19 Acetaminophen W/ Codeine [Tylenol W/ CODEINE #3] 1 ea PO BID 02/13/19 Acetaminophen W/ Codeine [Tylenol W/ CODEINE #3] 1 ea PO Q8HRS #20 11/25/19 Amiodarone HCl 200 mg PO DAILY 02/13/19 Saxagliptin HCl [Onglyza] 5 mg PO DAILY 02/13/19 Simvastatin 20 mg PO DAILY 02/13/19 tiZANidine [Zanaflex] 4 mg PO TID 02/13/19 Additional Instructions: please continue the knee immobilizer and use crutches to ambulate. Follow up with PCP at the earliest convenience and potentially orthopedic referral use medication as prescribed. Do not use ibuprofen more than 3 times a day. If worsening of condition return to the ER for reevaluation
--- NOTE | 2019-02-13 18:00 | RAD ---
EXAM DESCRIPTION: Knee,Right Complete CLINICAL HISTORY: knee pain COMPARISON: None. TECHNIQUE: 3 views right FINDINGS: Minimal patellofemoral joint arthritis is observed. No joint effusion is seen. No fracturing is detected. IMPRESSION: Mild patellofemoral joint arthritis is observed. Electronically signed by: John Garcia MD 02/13/2019 5:59 PM MANAGER [employer]ICAL WRITING
[2019-02-13 18:46] VITALS: BP 161/86; TEMP 98.2; O2SAT 96
== END 2019-02-13 18:20 | disposition home or self-care (01) ==
LOC: ER 17:02
DX: S83.91XA Sprain of unspecified site of right knee, initial encounter (principal); M17.11 Unilateral primary osteoarthritis, right knee; I25.2 Old myocardial infarction; E78.5 Hyperlipidemia, unspecified; I50.9 Heart failure, unspecified; I11.0 Hypertensive heart disease with heart failure; E07.9 Disorder of thyroid, unspecified; E11.9 Type 2 diabetes mellitus without complications; K21.9 Gastro-esophageal reflux disease without esophagitis; Z95.0 Presence of cardiac pacemaker; Z79.899 Other long term (current) drug therapy; Z79.4 Long term (current) use of insulin; Z79.82 Long term (current) use of aspirin; W19.XXXA Unspecified fall, initial encounter; Y92.9 Unspecified place or not applicable
CPT/HCPCS: 73562; J1885

== ENCOUNTER 2019-09-13 21:20 | Emergency (ER) | payer MEDICARE ==
[2019-09-13] MEDS ORDERED: NITROGLYCERIN 0.4 MG 25 EA TAB SL ONE ×2 (21:35→21:38)
[2019-09-13] MEDS ORDERED: ACETAMINOPHEN 500 MG TAB PO ONE (21:39)
[2019-09-13] MEDS ORDERED: ONDANSETRON INJ 4 MG/2 ML VIAL IV ONE ×2 (21:39→22:24)
--- NOTE | 2019-09-13 22:20 | RAD ---
EXAM DESCRIPTION: Chest,1 View CLINICAL HISTORY: 48 years Male, cough, fever, short of breath COMPARISON: 01/04/2019 FINDINGS: There is mild cardiomegaly. A dual chamber transvenous pacemaker is redemonstrated on the left. The lung benito are clear of active infiltrates. The pulmonary vascularity is unremarkable. No active pleural disease is present. IMPRESSION: 1. No active infiltrates. 2. Mild cardiomegaly, stable. Electronically signed by: Antonio Lebron MD 09/13/2019 10:19 PM CDT
[2019-09-13] MEDS ORDERED: SODIUM CHLORIDE 0.9% 1000ML 500 ML IVS ONE (22:28)
[2019-09-13] MEDS ORDERED: INSULIN, REG.(HUMAN) 100 U/ML VIAL IV ONE (22:28)
[2019-09-13 22:36] VITALS: TEMP 96.7
[2019-09-13] MEDS ORDERED: MORPHINE SULFATE INJ 10 MG/ML VIAL IV ONE (23:13)
--- NOTE | 2019-09-13 23:18 | CT ---
INDICATION: Abdominal pain, vomiting, distention. PROCEDURE: CT scan of the abdomen and pelvis was performed without intravenous contrast. 2.5 mm axial images were obtained along with coronal and sagittal reformatted images. DOSE OPTIMIZATION: This facility uses dose optimization techniques as appropriate to perform exams, including at least one of the following techniques: 1. Automated exposure control. 2. Adjustment of the mA and/or kV according to patient size (this includes techniques or standardized protocols for targeted exams where dose is matched to the indication/reason for exam, i.e. extremities or head). 3. Use of iterative reconstructive technique. INTRAVENOUS CONTRAST: None. COMPARISON: 07/28/2016 FINDINGS: Lung Bases: Normal. Liver: Normal. Spleen: Normal. Pancreas: Normal. Gallbladder: Normal. Adrenal Glands: Normal. Kidneys: Normal. Retroperitoneal Structures: Normal. Bowel Survey: There is increased stool in rectosigmoid colon. The appendix is unremarkable. The distal ileum is unremarkable. Prostate Gland: Normal in size. Urinary Bladder: Normal. Peritoneal Cavity: Normal. Mesenteric Structures: Normal. Abdominal Wall: No hernia. Bony Structures: No suspicious lesions. There is severe degenerative disc disease at L5-S1. IMPRESSION: 1. Increased stool in the rectosigmoid colon. Electronically signed by: Antonio Lebron MD 09/13/2019 11:17 PM CDT
--- NOTE | 2019-09-14 00:08 | ED.PDOC ---
History of Present Illness - General Chief Complaint: GI Problem Stated Complaint: vomiting, chest pain Time Seen by Provider: 09/13/19 21:37 Information Source: patient, RN notes reviewed, Vital Signs reviewed, family - History of Present Illness Initial Comments: 48M with past medical history significant for HTN, DM, HLD presents with nausea/vomiting and chest pain. He states that he was feeling well today and had an appointment with a photo intern for evaluation of fatty liver. After he returned home he started feeling very nauseated and started vomiting. He reports being unable to tolerate solids or liquids. He states that after vomiting profusely for a long time he developed chest pain that hurts when he takes a deep breath or presses on his chest wall. He feels moderately short of breath but states that he does not think that it feels like his CHF. He does not have any orthopnea. No unilateral leg swelling or recent immobilization. No other complaints at this time. Review of Systems - Review of Systems Constitutional: States: chills, fever, malaise, weakness - generalized EENTM: States: no symptoms reported Respiratory: States: cough, short of breath. Denies: orthopnea, wheezing Cardiology: States: chest pain. Denies: edema, palpitations Gastrointestinal/Abdominal: States: abdominal pain, nausea, vomiting. Denies: diarrhea Genitourinary: Denies: dysuria, frequency Musculoskeletal: States: no symptoms reported Skin: States: no symptoms reported Neurological: States: no symptoms reported Endocrine: States: no symptoms reported Hematologic/Lymphatic: States: no symptoms reported All other Systems: Reviewed and Negative Past Medical History (General) - Patient Medical History Hx Seizures: No Hx Stroke: No Hx Dementia: No Hx Asthma: No Hx of COPD: No Hx Cardiac Disorders: Yes - [place] x 2; dyslipidemia Hx Congestive Heart Failure: Yes Hx Pacemaker: Yes - Pacemaker/defib Hx Hypertension: Yes Hx Thyroid Disease: Yes Hx Diabetes: Yes Hx Gastroesophageal Reflux: Yes Hx Renal Disease: No Hx Cancer: No Hx of HIV: No Hx Hepatitis C: No Hx MRSA: No MRSA Source:: Wound Surgical History: other - Vaccination History Hx Tetanus, Diphtheria Vaccination: Yes Hx Influenza Vaccination: No Hx Pneumococcal Vaccination: No Immunizations Up to Date: Yes - Social History Hx Tobacco Use: Yes - Quit 2008 Hx Chewing Tobacco Use: No Hx Alcohol Use: No Hx Substance Use: Yes - quit many years ago Hx Substance Use Treatment: No Hx Depression: No Feels Threatened In Home Enviroment: No Feels Threatened In a Relationship: No Hx Physical Abuse: No Hx Emotional Abuse: No Hx Suspected Abuse: No - Activities of Daily Living Hospice Agency (if applicable):: None - Female History Patient is a Female of Child Bearing Age (10 -59 yrs old): No - Triage Comment ED Triage Comment: woke up today with nausea Family Medical History - Family History Mother Living Status: Cause of : colon CA Hx Family Congestive Heart Failure: Yes Hx Family Hypertension: Yes Hx Family Diabetes: Yes Hx Family Cancer: Yes Father Living Status: Cause of : lung CA Hx Family Congestive Heart Failure: Yes Hx Family Hypertension: Yes Physical Exam - Physical Exam General Appearance: Alert, Anxious, Ill Appearing, Restless Eyes, Ears, Nose, Throat Exam: PERRL/EOMI, normal ENT inspection Neck: non-tender, full range of motion, normal inspection Respiratory: normal breath sounds, no respiratory distress, no accessory muscle use, other - right side chest wall tenderness Cardiovascular/Chest: normal peripheral pulses, regular rate, rhythm, no murmur Gastrointestinal/Abdominal: non tender, soft, distended Neurologic: no motor/sensory deficits, alert, oriented x 3 Skin Exam: normal color, warm/dry Progress - Progress Progress: 09/14/19 00:12 Patient reassessed, he has elevated creatinine (unsure of baseline) with mild hypoxia, O2 saturation is around 92% on room air. Troponin is negative x 2, no acute ischemic EKG changes. CT abdomen/pelvis is unremarkable. Discussed admission for intractible vomiting, dehydration, hypoxia. This may be atypical COVID infection. He would like to try outpatient management. Will PO challenge. 09/14/19 00:18 Patient reassesed, he is able to tolerate a small amount of PO. His oxygen saturation is around 92% on room air. I have encouraged him to stay due to the mild hypoxia with mild JONO, however, after discussion of risk and benefit he would like to try going home with oral nausea medication and oral hydration. He will follow up closely with his primary care provider. I have instructed him to return to the Emergency Room if he is unable to tolerate liquids or if his symptoms are not significantly improved in the next 24-48 hours. Home care instructions and return indications reviewed. - Results/Orders Results/Orders: 09/13/19 21:45 EKG STAT 09/14/19 00:07 SARS-COV2 PCR HIGH RISK Stat Laboratory Results - last 24 hr 09/13/19 09/13/19 09/13/19 21:51 21:51 21:51 WBC 11.6 H RBC 4.78 Hgb 14.5 Hct 43.3 MCV 90.5 MCH 30.4 MCHC 33.6 RDW 14.3 Plt Count 305 MPV 8.7 Absolute Neuts (auto) 8.30 H Absolute Lymphs (auto) 2.20 Absolute Monos (auto) 0.70 Absolute Eos (auto) 0.10 Absolute Basos (auto) 0.20 H Neutrophils % 71.8 Lymphocytes % 19.2 L Monocytes % 6.3 Eosinophils % 1.3 Basophils % 1.4 Sodium 136 Potassium 4.5 Chloride 97 L Carbon Dioxide 25 Anion Gap 18.5 H BUN 16 Creatinine 1.31 H BUN/Creatinine Ratio 12.2 Random Glucose 310 H Serum Osmolality 284.9 Calcium 9.5 Total Bilirubin 1.4 H AST 121 H ALT 93 H Alkaline Phosphatase 89 Troponin I 0.04 B-Natriuretic Peptide 13.2 Serum Total Protein 8.6 H Albumin 4.4 Globulin 4.2 H Albumin/Globulin Ratio 1.0 L Urine Color Urine Appearance Urine pH Ur Specific [place] Urine Protein Urine Glucose (UA) Urine Ketones Urine Blood Urine Nitrite Urine Bilirubin Urine Urobilinogen Ur Leukocyte Esterase Urine RBC Urine WBC Ur Epithelial Cells Urine Bacteria 09/13/19 09/13/19 23:20 23:40 WBC RBC Hgb Hct MCV MCH MCHC RDW Plt Count MPV Absolute Neuts (auto) Absolute Lymphs (auto) Absolute Monos (auto) Absolute Eos (auto) Absolute Basos (auto) Neutrophils % Lymphocytes % Monocytes % Eosinophils % Basophils % Sodium Potassium Chloride Carbon Dioxide Anion Gap BUN Creatinine BUN/Creatinine Ratio Random Glucose Serum Osmolality Calcium Total Bilirubin AST ALT Alkaline Phosphatase Troponin I 0.03 B-Natriuretic Peptide Serum Total Protein Albumin Globulin Albumin/Globulin Ratio Urine Color Yellow Urine Appearance Clear Urine pH 5.5 Ur Specific [place] >= 1.030 Urine Protein >=300 H Urine Glucose (UA) >=1000 H Urine Ketones 15 H Urine Blood Trace-lysed H Urine Nitrite Negative Urine Bilirubin Negative Urine Urobilinogen 0.2 Ur Leukocyte Esterase Negative Urine RBC 0 Urine WBC 1-3 Ur Epithelial Cells 0 Urine Bacteria 0 - EKG/XRAY/CT Comments: 0 sinus tachycardia 117 RBBB no STEMI Xray Comments: Mild cardiomegaly, no active infiltrates CT: No acute intra-abdominal process Departure - Departure Clinical Impression: Chest wall pain, Dehydration, mild, Renal insufficiency, mild Disposition: Discharge to Home or Self Care Departure Forms: ED Discharge - Pt. Copy, Patient Portal Self Enrollment Diet: bland diet Activity: increase activity as tolerated Referrals: Wilfred Castro MD [Primary Care Provider] - 1-2 Weeks Prescriptions: Promethazine Tab [Phenergan Tablet] 25 mg PO Q6H PRN #20 tab PRN Reason: Nausea Home Medications: Ambulatory Orders Aspirin [Familia Chewable Low Dose] 81 mg PO DAILY #0 11/10/12 Fluoxetine HCl [Prozac] 20 mg PO DAILY #0 11/10/12 Furosemide [Lasix] 20 mg PO DAILY #0 11/10/12 Atorvastatin Calcium [Lipitor] 40 mg PO DAILY 08/07/13 Carvedilol 25 mg PO BID 08/07/13 Spironolactone [Aldactone] 25 mg PO DAILY 08/07/13 Levothyroxine Sodium 150 mcg PO DAILY 01/04/15 Lisinopril [Prinivil] 20 mg PO DAILY 01/04/15 Metformin HCl 500 mg PO BID 01/04/15 Docusate Sodium [Stool Softener] 100 mg PO KVNG-OTH-DAY 12/15/15 Insulin Glargine [Lantus Solostar] 30 unit SC BEDTIME 12/15/15 Insulin Lispro [Humalog] 0 - 15 unit SUBCU TIDFDHS 12/15/15 Ondansetron [Zofran Odt] 4 mg PO Q4H PRN #10 tab 07/29/16 ARIPiprazole [Abilify] 5 mg PO DAILY 02/13/19 Acetaminophen W/ Codeine [Tylenol W/ CODEINE #3] 1 ea PO BID 02/13/19 Acetaminophen W/ Codeine [Tylenol W/ CODEINE #3] 1 ea PO Q8HRS #20 02/13/19 Amiodarone HCl 200 mg PO DAILY 02/13/19 Saxagliptin HCl [Onglyza] 5 mg PO DAILY 02/13/19 Simvastatin 20 mg PO DAILY 02/13/19 tiZANidine [Zanaflex] 4 mg PO TID 02/13/19 Promethazine Tab [Phenergan Tablet] 25 mg PO Q6H PRN #20 tab 09/14/19 Additional Instructions: Start liquid/bland diet. Follow up with your primary care provider within the next week for lab re-check. If your symptoms fail to improve within 24-48 hours return to the Emergency Department or sooner if you develop worsening shortness of breath, pain, or inability to eat or drink.
[2019-09-14 00:19] VITALS: BP 169/80; O2SAT 91
[2019-09-14] MEDS ORDERED: PROMETHAZINE TAB (ER DISP) 25 MG TAB PO ONE (00:24)
== END 2019-09-14 00:38 | disposition home or self-care (01) ==
LOC: ER 21:20
DX: R07.89 Other chest pain (principal); E86.0 Dehydration; R11.2 Nausea with vomiting, unspecified; I25.2 Old myocardial infarction; I11.0 Hypertensive heart disease with heart failure; I50.9 Heart failure, unspecified; E11.9 Type 2 diabetes mellitus without complications; Z95.0 Presence of cardiac pacemaker; Z87.891 Personal history of nicotine dependence; Z79.899 Other long term (current) drug therapy; Z79.82 Long term (current) use of aspirin; Z79.4 Long term (current) use of insulin
CPT/HCPCS: 36415; 71045; 74176; 80053; 81001; 82948; 83880; 84484; 85025; 93005; J2270; J2405; J7030; Q0169; U0002

== ENCOUNTER 2020-02-22 05:07 | Inpatient (IN) | payer MEDICARE ==
[2020-02-22] MEDS ORDERED: SODIUM CHLORIDE 0.9% 1000ML 1,000 ML IVS ONE ×3 (05:21→06:56)
[2020-02-22] MEDS ORDERED: methylPREDNISolone SODIUM SUC 125 MG/2 ML VIAL IV ONE (05:22)
--- NOTE | 2020-02-22 05:29 | ED.PDOC ---
History of Present Illness - General Source: patient, EMS notes reviewed Exam Limitations: no limitations - History of Present Illness Initial Comments: The patient is a 49-year-old male presented emergency room secondary to feeling dizzy and weak after waking up and having 6 episodes of diarrhea. No blood in the diarrhea. No vomiting. He reports he was feeling fine when he went to bed. He is diabetic and does have a history of chronic renal insufficiency and CHF as well as hypothyroidism. He reports no significant recent medication changes. He has not missed doses of his medications. No chest pain. No sore throat or runny nose. The patient had not checked a blood pressure recently but reports that he is normally severely hypertensive. Timing/Duration: 1 hour Severity: severe Improving Factors: rest Worsening Factors: movement Associated Symptoms: diaphoresis, loss of appetite, malaise, weakness <Dina Sarkar - Last Filed: 02/22/20 06:54> <Costa Mosher - Last Filed: 02/22/20 10:23> - General Chief Complaint: GI Problem Stated Complaint: Diarrrhea, dizziness, cold sweats Time Seen by Provider: 02/22/20 05:09 - History of Present Illness Allergies/Adverse Reactions: Allergies NO KNOWN ALLERGY Allergy (Verified 11/08/19 23:38) Home Medications: Ambulatory Orders Aspirin [Familia Chewable Low Dose] 81 mg PO DAILY #0 11/10/12 Fluoxetine HCl [Prozac] 20 mg PO DAILY #0 11/10/12 Furosemide [Lasix] 20 mg PO DAILY #0 11/10/12 Atorvastatin Calcium [Lipitor] 40 mg PO DAILY 08/07/13 Carvedilol 25 mg PO BID 08/07/13 Spironolactone [Aldactone] 25 mg PO DAILY 08/07/13 Levothyroxine Sodium 150 mcg PO DAILY 01/04/15 Lisinopril [Prinivil] 20 mg PO DAILY 01/04/15 Metformin HCl 500 mg PO BID 01/04/15 Docusate Sodium [Stool Softener] 100 mg PO KVNG-OTH-DAY 12/15/15 Insulin Lispro [Humalog] 0 - 15 unit SUBCU TIDFDHS 12/15/15 Ondansetron [Zofran Odt] 4 mg PO Q4H PRN #10 tab 07/29/16 Amiodarone HCl 200 mg PO DAILY 02/13/19 tiZANidine [Zanaflex] 4 mg PO TID 02/13/19 Promethazine Tab [Phenergan Tablet] 25 mg PO Q6H PRN #20 tab 09/14/19 Insulin Detemir [Levemir] 50 unit SUBCU DAILY 11/09/19 Potassium Chloride [Klor-Con] 20 meq PO 11/09/19 Review of Systems - Review of Systems Constitutional: States: malaise, weakness EENTM: States: no symptoms reported Respiratory: States: no symptoms reported Cardiology: States: no symptoms reported Gastrointestinal/Abdominal: States: abdominal pain - Cramping primarily, diarrhea Genitourinary: States: no symptoms reported Musculoskeletal: States: no symptoms reported Skin: States: no symptoms reported Neurological: States: no symptoms reported Endocrine: States: no symptoms reported All other Systems: No Change from Baseline <Dina Sarkar - Last Filed: 02/22/20 06:54> Past Medical History (General) - Patient Medical History Hx Seizures: No Hx Stroke: No Hx Dementia: No Hx Asthma: No Hx of COPD: No Hx Cardiac Disorders: Yes - ND x 2; dyslipidemia Hx Congestive Heart Failure: Yes Hx Pacemaker: Yes - Pacemaker/defib Hx Hypertension: Yes Hx Thyroid Disease: Yes Hx Diabetes: Yes Hx Gastroesophageal Reflux: Yes Hx Renal Disease: No Hx Cancer: No Hx of HIV: No Hx Hepatitis C: No Hx MRSA: No MRSA Source:: Wound - Vaccination History Hx Tetanus, Diphtheria Vaccination: No Hx Influenza Vaccination: No Hx Pneumococcal Vaccination: No - Social History Hx Tobacco Use: Yes - Quit 2008 Hx Chewing Tobacco Use: No Hx Alcohol Use: No Hx Substance Use: Yes - quit many years ago Hx Substance Use Treatment: No Hx Depression: No Hx Physical Abuse: No Hx Emotional Abuse: No Hx Suspected Abuse: No <Dina Sarkar - Last Filed: 02/22/20 06:54> Family Medical History - Family History Mother Living Status: Cause of : colon CA Hx Family Congestive Heart Failure: Yes Hx Family Hypertension: Yes Hx Family Diabetes: Yes Hx Family Cancer: Yes Father Living Status: Cause of : lung CA Hx Family Congestive Heart Failure: Yes Hx Family Hypertension: Yes <Dina Sarkar - Last Filed: 02/22/20 06:54> Physical Exam - Physical Exam General Appearance: Alert, Anxious, Ill Appearing Eye Exam: bilateral normal Ears, Nose, Throat: hearing grossly normal, normal pharynx Neck: full range of motion, supple Respiratory: lungs clear, normal breath sounds, no respiratory distress, no accessory muscle use Cardiovascular/Chest: normal peripheral pulses, no edema, tachycardia Peripheral Pulses: radial,right: 2+, radial,left: 2+ Gastrointestinal/Abdominal: soft, other - Vague diffuse discomfort to palpation. He is morbidly obese. 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 Laboratory work is still largely pending at this point. The patient is still significantly hypotensive after about three quarters of a liter and we will go ahead and start Levophed at 5 mcg. Obviously if the patient's blood pressures improved with rehydration this can be titrated back. Oxygen was placed on the patient secondary to his history of demand ischemia and apparently scattered coronary artery disease. He is not hypoxic. Following the patient closely for response to above measures. I would prefer vasopressin on this patient however it is unavailable. At this point the most likely candidate for hypotension is sepsis. It is certainly possible the patient may have been hypotensive for much longer than just the last couple of hours and not known it. He does take multiple medications that lower his blood pressure. He does take a diuretic. Again essentially all laboratory work is still pending. 02/22/20 06:23 at about 1300 cc of normal saline and Levophed at 10 mics, the patient's last blood pressure was in the 100s over 60s. Unless we see other contraindications we will plan on giving the patient around 3 L of IV fluids and gradually titrating down the Levophed. If higher doses of Levophed are required then a central line may be required. Good extremity perfusion on my exam at this time. The patient has tested positive for coronavirus. He will be starting remdesivir after the Zosyn. He does have a prolonged QT interval on the initial EKG. If this persists then he may not be a great candidate for azithromycin. 02/22/20 06:26 He has not yet had a bout of diarrhea since arrival to check for C. difficile. It is not entirely certain at this point that the diarrhea is infectious versus simply a reaction to the hypotension. 02/22/20 06:27 02/22/20 06:30 D-dimer is elevated at around 4100. This can certainly go along with coronavirus infection itself without any large blood clots. The patient's renal function is borderline. We will plan on getting the patient fully hydrated and then obtaining a CTA of the chest and a CT of abdomen pelvis with contrast. He is receiving a preemptive dose of oral Mucomyst as well. The patient is not hypoxic and not in respiratory distress in any way. I would find it unusual for the patient to have a large pulmonary embolus giving hypotension but no hypoxia. That certainly may still be the case. The elevated white blood cell count of 21,000 as a least raise a possibility of a superimposed bacterial infection on top of the coronavirus. Again he has already been started on Zosyn at this point. Blood cultures have been done. He is looking much better clinically with a improved blood pressure. 02/22/20 06:36 there has been a miscommunication with lab, this patient is actually coronavirus negative. He has not yet received remdesivir. This will be canceled. This does however make a CT angiogram of the chest more pertinent on this patient. Again we will hydrate him and then plan on this. I repeat the patient is coronavirus negative. 02/22/20 06:54 The patient is additionally hypothyroid and is receiving a dose of that here. The patient will be followed by the oncoming ER physician. Blood pressures are improving and we will start titrating the Levophed down. Critical care time spent on this patient for above issues is 40 minutes so far. dina sarkar 911 - Results/Orders Results/Orders: EKG shows sinus tachycardia 104 bpm. Borderline left axis deviation with an incomplete right bundle branch block and poor R wave progression in anterior leads. No ST segment or T wave changes indicative of acute ischemia when compared to previous. Mild left atrial dilation. There is some QT prolongation. <Dina Sarkar L - Last Filed: 12/03/20 06:54> - Progress Progress: 02/22/20 07:48 Pt is a 49 yo male with PMH of DM, HTN, CKD and hypothyroid. States he felt at baseline yesterday and awoke about 0200 today with diffuse crampy abdominal pain, nausea and multiple episodes of diarrhea then became dizzy with generalized weakness. Was hypotensive upon arrival. Has received 1.5L NS and is currently on Levophed at 10 mcg and feeling improved. Will plan to get CTA chest and CT A/P to further evaluate. 02/22/20 08:54 After 2L IVF, Levophed weaned and off. Pt feels improved. Will get CT chest, A/P. 02/22/20 10:18 Pt has been off Levophed for > 1 hour and BP is stable. No tachycardia. CT's o f chest and A/P show no acute. Pt on RA with no hypoxia or respiratory distress. IVF hydration done in ED and feels improved. UA shows likely UTI and treated with IV abx. Lactic improved from 3.5--->2.6. Covid negative. I have d/w Yanci Garay, hospitalist, will admit for sepsis and dehydration. - Results/Orders Results/Orders: CT Abd/Pelvis FINDINGS: In the lower chest, the lung bases are clear. Heart size is normal. Mild to moderate coronary calcification. Cardiac pacer is in place. CT abdomen The liver, spleen, pancreas, gallbladder, adrenal glands, stomach and kidneys are normal in appearance. No inflammation around the pancreas. No renal stones or hydronephrosis. No bowel dilatation to suggest obstruction. No free air or free fluid. CT pelvis Appendix appears normal. No inflammation around the cecum or terminal ileum or sigmoid colon. Bladder and distal ureters are negative for stones. Normal enhancement of pelvic vessels. No inguinal or lower pelvic adenopathy. Minimal free fluid in the pelvis. Normal prostate and seminal vesicles. Bone window images are negative for fracture or lytic lesion. Coronal and sagittal reformatted images confirm the findings. Liver is enlarged as on previous study. No focal liver lesion. IMPRESSION: Hepatomegaly with no focal liver lesion. Otherwise no acute process in the abdomen or pelvis. CT CHEST FINDINGS: The exam reveals a pacemaker in place on the left. No thyroid abnormality is seen. No pathologic axillary adenopathy is seen. No hilar or mediastinal adenopathy is detected. Minimal coronary artery calcification is noted. No pleural fluid is seen. No adrenal masses are detected. Small calcified granulomas are observed in the right lower lobe. No parenchymal nodule or infiltrate is detected. Mild degenerative changes are seen in the thoracic spine. Calcific atherosclerotic changes observed in the thoracic aorta without evidence of aneurysmal dilatation. IMPRESSION: 1. A pacemaker seen in place. 2. No acute cardiopulmonary pathology is detected. 02/22/20 05:20 Telemetry .CONTINUOUS 02/22/20 05:22 cdiff [CLOSTRIDIUM DIFFICILE AG/TOXIN] Stat 02/22/20 05:30 EKG STAT 02/22/20 05:32 BLOOD CULTURE Stat 02/22/20 05:33 CORTISOL,TOTAL,SERUM Stat 02/22/20 06:00 Norepinephrine Bitartrate [Levophed] 4 mg Dextrose 5% 250Ml [D5W 250ml] 250 ml IVPB PRN 02/22/20 08:53 Hold Metformin x 48Hrs [id number] Laboratory Results - last 24 hr 02/22/20 02/22/20 02/22/20 05:32 05:32 05:32 WBC 21.5 H* RBC 5.66 Hgb 16.7 Hct 49.1 MCV 86.8 MCH 29.6 MCHC 34.1 RDW 14.2 Plt Count 313 MPV 8.3 Absolute Neuts (auto) Not Reportable Absolute Lymphs (auto) Not Reportable Absolute Monos (auto) Not Reportable Absolute Eos (auto) Not Reportable Neutrophils % Not Reportable Neutrophils % (Manual) 84.0 H Lymphocytes % Not Reportable Lymphocytes % (Manual) 9.0 Monocytes % Not Reportable Monocytes % (Manual) 5.0 Eosinophils % Not Reportable Basophils % Not Reportable Band Neutrophils 2.0 Toxic Granulation 1+ Platelet Estimate Normal PT 11.3 H INR 1.14 PTT (SP) 23.2 D-Dimer, Quantitative 4490.0 H* Sodium 135 Potassium 4.2 Chloride 99 L Carbon Dioxide 21 Anion Gap 19.2 H BUN 17 Creatinine 1.68 H BUN/Creatinine Ratio 10.1 POC Glucose Random Glucose 279 H Serum Osmolality 281.7 Lactic Acid Calcium 9.2 Magnesium 1.5 L Total Bilirubin 1.2 H AST 48 H ALT 57 Alkaline Phosphatase 58 Creatine Kinase 44 CK-MB (CK-2) 1.9 CK-MB (CK-2) % Not Reportable Troponin I 0.02 B-Natriuretic Peptide 37.2 Serum Total Protein 7.3 Albumin 3.9 Globulin 3.4 Albumin/Globulin Ratio 1.1 Amylase 29 Lipase 31 TSH 14.81 H Free T4 Urine Color Urine Appearance Urine pH Ur Specific Stanford Urine Protein Urine Glucose (UA) Urine Ketones Urine Blood Urine Nitrite Urine Bilirubin Urine Urobilinogen Ur Leukocyte Esterase Urine RBC Urine WBC Ur Epithelial Cells Amorphous Sediment Urine Bacteria Urine Mucus 02/22/20 02/22/20 02/22/20 05:32 05:32 05:32 WBC RBC Hgb Hct MCV MCH MCHC RDW Plt Count MPV Absolute Neuts (auto) Absolute Lymphs (auto) Absolute Monos (auto) Absolute Eos (auto) Neutrophils % Neutrophils % (Manual) Lymphocytes % Lymphocytes % (Manual) Monocytes % Monocytes % (Manual) Eosinophils % Basophils % Band Neutrophils Toxic Granulation Platelet Estimate PT INR PTT (SP) D-Dimer, Quantitative Sodium Potassium Chloride Carbon Dioxide Anion Gap BUN Creatinine BUN/Creatinine Ratio POC Glucose 217 H Random Glucose Serum Osmolality Lactic Acid 3.5 H* Calcium Magnesium Total Bilirubin AST ALT Alkaline Phosphatase Creatine Kinase CK-MB (CK-2) CK-MB (CK-2) % Troponin I B-Natriuretic Peptide Serum Total Protein Albumin Globulin Albumin/Globulin Ratio Amylase Lipase TSH Free T4 0.94 Urine Color Urine Appearance Urine pH Ur Specific Stanford Urine Protein Urine Glucose (UA) Urine Ketones Urine Blood Urine Nitrite Urine Bilirubin Urine Urobilinogen Ur Leukocyte Esterase Urine RBC Urine WBC Ur Epithelial Cells Amorphous Sediment Urine Bacteria Urine Mucus 02/22/20 02/22/20 08:15 09:15 WBC RBC Hgb Hct MCV MCH MCHC RDW Plt Count MPV Absolute Neuts (auto) Absolute Lymphs (auto) Absolute Monos (auto) Absolute Eos (auto) Neutrophils % Neutrophils % (Manual) Lymphocytes % Lymphocytes % (Manual) Monocytes % Monocytes % (Manual) Eosinophils % Basophils % Band Neutrophils Toxic Granulation Platelet Estimate PT INR PTT (SP) D-Dimer, Quantitative Sodium Potassium Chloride Carbon Dioxide Anion Gap BUN Creatinine BUN/Creatinine Ratio POC Glucose Random Glucose Serum Osmolality Lactic Acid 2.6 H* Calcium Magnesium Total Bilirubin AST ALT Alkaline Phosphatase Creatine Kinase CK-MB (CK-2) CK-MB (CK-2) % Troponin I B-Natriuretic Peptide Serum Total Protein Albumin Globulin Albumin/Globulin Ratio Amylase Lipase TSH Free T4 Urine Color Yellow Urine Appearance Clear Urine pH 5.5 Ur Specific Stanford 1.020 Urine Protein 100 H Urine Glucose (UA) 500 H Urine Ketones Negative Urine Blood Negative Urine Nitrite Negative Urine Bilirubin Negative Urine Urobilinogen 0.2 Ur Leukocyte Esterase Negative Urine RBC 1-3 Urine WBC 5-10 H Ur Epithelial Cells 0-1 Amorphous Sediment 1+ Urine Bacteria Rare Urine Mucus Trace <Costa Mosher - Last Filed: 02/22/20 10:23> Departure <Dina Sarkar Barb - Last Filed: 02/22/20 06:54> - Departure Time of Disposition: 10:22 <Costa Mosher - Last Filed: 02/22/20 10:23> - Departure Clinical Impression: Dehydration Diarrhea Qualifiers: Diarrhea type: unspecified type Qualified Code(s): R19.7 - Diarrhea, unspecified Hypotension Qualifiers: Hypotension type: unspecified hypotension type Qualified Code(s): I95.9 - Hypotension, unspecified Sepsis Qualifiers: Sepsis type: sepsis due to unspecified organism Sepsis acute organ dysfunction status: with acute organ dysfunction Severe sepsis acute organ dysfunction type: unspecified Severe sepsis shock status: with septic shock Qualified Code(s): A41.9 - Sepsis, unspecified organism; R65.21 - Severe sepsis with septic shock Hypothyroid Qualifiers: Hypothyroidism type: unspecified Qualified Code(s): E03.9 - Hypothyroidism, unspecified Disposition: Admit Patient Condition: Poor Departure Forms: ED Discharge - Pt. Copy, Patient Portal Self Enrollment Referrals: Wilfred Castro MD [Primary Care Provider] - 1-2 Weeks Home Medications: Ambulatory Orders Aspirin [Familia Chewable Low Dose] 81 mg PO DAILY #0 11/10/12 Fluoxetine HCl [Prozac] 20 mg PO DAILY #0 11/10/12 Furosemide [Lasix] 20 mg PO DAILY #0 11/10/12 Atorvastatin Calcium [Lipitor] 40 mg PO DAILY 08/07/13 Carvedilol 25 mg PO BID 08/07/13 Spironolactone [Aldactone] 25 mg PO DAILY 08/07/13 Levothyroxine Sodium 150 mcg PO DAILY 01/04/15 Lisinopril [Prinivil] 20 mg PO DAILY 01/04/15 Metformin HCl 500 mg PO BID 01/04/15 Docusate Sodium [Stool Softener] 100 mg PO KVNG-OTH-DAY 12/15/15 Insulin Lispro [Humalog] 0 - 15 unit SUBCU TIDFDHS 12/15/15 Ondansetron [Zofran Odt] 4 mg PO Q4H PRN #10 tab 07/29/16 Amiodarone HCl 200 mg PO DAILY 02/13/19 tiZANidine [Zanaflex] 4 mg PO TID 02/13/19 Promethazine Tab [Phenergan Tablet] 25 mg PO Q6H PRN #20 tab 09/14/19 Insulin Detemir [Levemir] 50 unit SUBCU DAILY 11/09/19 Potassium Chloride [Klor-Con] 20 meq PO 11/09/19 Decision To Admit - Decistion To Admit Decision to Admit Date: 02/22/20 Decision to Admit Time: 10:21 <Costa Mosher - Last Filed: 02/22/20 10:23>
[2020-02-22] MEDS ORDERED: PIPERACILLIN/TAZOBACTAM 3.375 GM in SODIUM CHLORIDE 0.9% 100ML 100 ML IVPB ONE (05:35)
--- NOTE | 2020-02-22 05:56 | RAD ---
EXAM: XR Chest, 1 View CLINICAL HISTORY: The patient is 49 years old and is Male; abrupt diarrhea and hypotension TECHNIQUE: Frontal view of the chest. COMPARISON: Chest x-ray 11/08/2019. FINDINGS: Lungs: Unremarkable. No consolidation. Pleural space: Unremarkable. No pneumothorax. Heart: Unremarkable. No cardiomegaly. Mediastinum: Unremarkable. Bones/joints: Unremarkable. Tubes, lines and devices: Left-sided AICD. IMPRESSION: No acute findings in the chest. Electronically signed by: Costa Garay MD 02/22/2020 5:54 AM WEB SITE PROJECT MANAGER
[2020-02-22] MEDS ORDERED: NOREPINEPHRINE BITARTRATE 4 MG in DEXTROSE 5% 250ML 250 ML IVPB SCH (06:00)
[2020-02-22] MEDS ORDERED: DEXAMETHASONE INJ 10 MG/ML VIAL IV ONE (06:16)
[2020-02-22] MEDS ORDERED: REMDESIVIR 200 MG in SODIUM CHLORIDE 0.9% 250ML 250 ML IVPB ONE (06:21)
[2020-02-22] MEDS ORDERED: ACETYLCYSTEIN 20 % 6,000 MG/30 ML VIAL PO ONE (06:30)
[2020-02-22] MEDS ORDERED: LEVOTHYROXINE SODIUM 0.1 MG, LEVOTHYROXINE SODIUM 0.075 MG PO ONE ×2 (06:54)
--- NOTE | 2020-02-22 09:41 | CT ---
EXAM DESCRIPTION: Chest w/Contrast CLINICAL HISTORY: 49 years Male, chest pain, hypotension COMPARISON: CT of the chest dated 04 January 2019 TECHNIQUE: Transaxial images were obtained with intravenous contrast media. Sagittal and coronal reconstruction was performed.This exam was performed according to our departmental dose-optimization program, which includes automated exposure control, adjustment of the mA and/or kV according to patient size and/or use of iterative reconstruction technique. FINDINGS: The exam reveals a pacemaker in place on the left. No thyroid abnormality is seen. No pathologic axillary adenopathy is seen. No hilar or mediastinal adenopathy is detected. Minimal coronary artery calcification is noted. No pleural fluid is seen. No adrenal masses are detected. Small calcified granulomas are observed in the right lower lobe. No parenchymal nodule or infiltrate is detected. Mild degenerative changes are seen in the thoracic spine. Calcific atherosclerotic changes observed in the thoracic aorta without evidence of aneurysmal dilatation. IMPRESSION: 1. A pacemaker seen in place. 2. No acute cardiopulmonary pathology is detected. Electronically signed by: John Garcia MD 02/22/2020 9:40 AM [facility]
--- NOTE | 2020-02-22 10:09 | CT ---
EXAM DESCRIPTION: CT ABDOMEN AND PELVIS WITH CONTRAST CLINICAL HISTORY: abd pain, vomiting COMPARISON: None Available. TECHNIQUE: CT of the abdomen and pelvis are performed during IV bolus administration of 100 R knee mL of Isovue 300. Oral contrast media is administered as well. FINDINGS: In the lower chest, the lung bases are clear. Heart size is normal. Mild to moderate coronary calcification. Cardiac pacer is in place. CT abdomen The liver, spleen, pancreas, gallbladder, adrenal glands, stomach and kidneys are normal in appearance. No inflammation around the pancreas. No renal stones or hydronephrosis. No bowel dilatation to suggest obstruction. No free air or free fluid. CT pelvis Appendix appears normal. No inflammation around the cecum or terminal ileum or sigmoid colon. Bladder and distal ureters are negative for stones. Normal enhancement of pelvic vessels. No inguinal or lower pelvic adenopathy. Minimal free fluid in the pelvis. Normal prostate and seminal vesicles. Bone window images are negative for fracture or lytic lesion. Coronal and sagittal reformatted images confirm the findings. Liver is enlarged as on previous study. No focal liver lesion. IMPRESSION: Hepatomegaly with no focal liver lesion. Otherwise no acute process in the abdomen or pelvis. This exam was performed according to our departmental dose-optimization program, which includes automated exposure control, adjustment of the mA and/or kV according to patient size and/or use of iterative reconstruction technique. Total DLP equals 1872.39 mGycm. Electronically signed by: Juan Tolliver MD 02/22/2020 10:07 AM BLACK POWDER GLAZING OPERATOR
[2020-02-22] MEDS ORDERED: ACETAMINOPHEN W/COD #3 TAB 1 EA TAB PO ONE (11:07)
--- NOTE | 2020-02-22 11:27 | HP ---
SUPERVISING PHYSICIAN: Eddi Harrison MD CHIEF COMPLAINT: Dizziness and diarrhea. HISTORY OF PRESENT ILLNESS: This is a 49-year-old male patient who presented to the Emergency Room secondary to dizziness and weakness after he woke up this morning after having 5 episodes of diarrhea. He denies any blood in the diarrhea. He had no vomiting. He does have ischemic cardiomyopathy and is followed by Dr. La in [place]. He has congestive heart failure as well as chronic renal insufficiency. He also has hypothyroidism and diabetes mellitus, type 2. He is a patient of Dr. Durbin. His initial vital signs showed a temperature of 96.8, heart rate 115, blood pressure 61/43, respiratory rate 20, O2 saturation 95%. He was given fluids and actually had to be placed on Levophed for some time, but that eventually was discontinued once he was hydrated. Lab studies were done. His WBCs were 21,500, hemoglobin 16.7, hematocrit 49.1. D-dimer 4,490. Sodium 135, potassium 4.2, chloride 99, BUN 17, creatinine 1.68. Baseline creatinine is about 1 to 1.1. Glucose 279, lactic acid 3.5, magnesium 1.5. Total bilirubin 1.2, AST 48, CRP 1.1, TSH 14.81. Urinalysis was unremarkable except for 100 of urine protein, 500 urine glucose and 5 to 10 urine WBCs. Blood cultures were drawn. COVID testing was negative. Chest x-ray showed no acute findings in the chest. Abdomen and pelvis CT shows hepatomegaly with no focal liver lesions. Otherwise, no acute process in the abdomen or pelvis. Chest CT showed a pacemaker in place and no acute cardiopulmonary pathology detected. He was given some Zosyn and Solu- Medrol. He was admitted to the Floor and was given some magnesium replacement as well as started on vancomycin. PAST MEDICAL HISTORY: 1. Congestive heart failure of unknown etiology. No echocardiogram to review at this time. 2. Diabetes mellitus, type 2. 3. Hypertension. 4. Ischemic cardiomyopathy. 5. Renal insufficiency. 6. Coronary artery disease. 7. Hypothyroidism. 8. Gastroesophageal reflux disease. 9. Hyperlipidemia. 10. Morbid obesity. 11. Myocardial infarction x2. PAST SURGICAL HISTORY: 1. Pacemaker/defibrillator implantation. OUTPATIENT MEDICATIONS: Per the EMR and awaiting verification. ALLERGIES: NO KNOWN DRUG ALLERGIES. SOCIAL HISTORY: He lives in [place]. He sees Dr. Castro. He has a previous history of tobacco use, but quit about 12 years ago. No ETOH or illicit drug use. REVIEW OF SYSTEMS: GENERAL: Positive for malaise and weakness. HEENT: Negative for sinus symptoms, ear pain, vision changes or sore throat. RESPIRATORY: Negative for wheezing, coughing or shortness of breath. CARDIAC: Negative for chest pain, palpitations or tachycardia. GASTROINTESTINAL: Positive for abdominal pain with diarrhea. Negative for nausea and vomiting. GENITOURINARY: Negative for hematuria, dysuria or polyuria. SKIN: Negative for lesions or rashes. NEUROLOGIC: Negative for headache or seizures. PHYSICAL EXAMINATION: VITAL SIGNS: Temperature 97.2, heart rate 90, blood pressure 126/77, respiratory rate 16, O2 saturation 94% on room air. GENERAL: This is a 49-year-old morbidly obese male patient lying in his hospital bed. He is in no acute distress. HEENT: Normocephalic, atraumatic. Pupils are equal and reactive. Oropharynx is clear. NECK: Supple without mass. RESPIRATORY: Essentially clear to auscultation bilaterally, but somewhat diminished at the bases. CARDIOVASCULAR: Regular rate and rhythm. GASTROINTESTINAL: Abdomen is soft, nondistended, nontender. Bowel sounds are positive. RECTAL: Deferred. EXTREMITIES: No cyanosis, clubbing or edema. NEUROLOGIC: Awake, alert and oriented times three. Cranial nerves II-XII are grossly intact as tested. SKIN: Warm, pink and dry. LABORATORY: Labs and films are as per history of present illness. IMPRESSION: 1. Sepsis of unknown of etiology. He as hypotensive on admission with blood pressure 61/43, heart rate 115, WBCs 21,500 and lactic acid 3.5. 2. Acute on chronic kidney failure with baseline creatinine of 1 to 1.1. His admitting creatinine was 1.68. 3. Colitis versus gastritis with diarrhea and negative abdominal CT. 4. Diabetes mellitus, type 2. 5. Hypertension. 6. Coronary artery disease. 7. Ischemic cardiomyopathy. 8. Congestive heart failure of unknown etiology. 9. Hypothyroidism with admitting TSH of 14.8. 10. History of myocardial infarctions. 11. Hyperlipidemia. 12. Gastroesophageal reflux disease. 13. Morbid obesity. PLAN: The patient is admitted to the hospital and will continue to get fluids overnight. I have repeated his lactic acid earlier and it was still elevated. We will repeat it in the morning. He will continue on the Zosyn and vancomycin will be per pharmacy protocol. I will recheck his labs in the morning. He will also have stool studies. I placed him on sliding scale insulin. His routine long-acting insulin is 38 units daily and I will start him on 20 units daily. His home medications will be restarted as soon as they are available. I have ordered an echocardiogram. I have increased his dosage of Synthroid. He will have Lovenox for DVT prophylaxis as well as Protonix for ulcer prophylaxis. I will repeat his lab in the morning. We will follow and monitor as needed. #[id number] [facility]
[2020-02-22] MEDS ORDERED: MAGNESIUM SULFATE PREMIX 2GM 2 GM in PREMIX BAG 1 BAG IVPB ONE (12:26)
[2020-02-22] MEDS ORDERED: SODIUM CHLORIDE 0.9% 500ML 500 ML IVS ONE (12:28)
[2020-02-22] MEDS ORDERED: SODIUM CHLORIDE 0.45% 1000ML 1,000 ML IVS PRN (12:28)
[2020-02-22] MEDS ORDERED: ONDANSETRON INJ 4 MG/2 ML VIAL IV PRN (12:39)
[2020-02-22] MEDS ORDERED: SODIUM CHLORIDE 0.9% (FLUSH) 10 ML SYG IV PRN (12:39)
[2020-02-22] MEDS ORDERED: VANCOMYCIN PER PHARMACY IVPB SCH (13:00)
[2020-02-22] MEDS ORDERED: GLUCAGON INJ 1 MG VIAL SUBCU PRN (14:47)
[2020-02-22] MEDS ORDERED: DEXTROSE 50% 25 GM/50 ML SYG IV PRN (14:47)
[2020-02-22] MEDS: INSULIN LISPRO 100 UNITS/ML PEN SUBCU SCH ×2 (16:42→21:30)
[2020-02-22] MEDS: metFORMIN HCL 500 MG TAB PO SCH (16:46)
[2020-02-22] MEDS ORDERED: SODIUM CHLORIDE 0.9% 500ML 500 ML ONE (16:59)
[2020-02-22] MEDS ORDERED: MAGNESIUM SULFATE PREMIX 2GM 50 ML IVPB ONE (16:59)
[2020-02-22] MEDS: tiZANidine 4 MG TAB PO SCH ×2 (17:23→21:26)
[2020-02-22] MEDS: IV SET AND CAP CHANGE INJ INJ SCH (17:24)
[2020-02-22] MEDS: ACETAMINOPHEN 325 MG TAB PO PRN ×2 (17:30→18:55)
[2020-02-22] MEDS: VANCOMYCIN HCL INJ 1,000 MG, VANCOMYCIN HCL INJ 250 MG in SODIUM CHLORIDE 0.9% 250ML 25... IVPB SCH (18:53)
[2020-02-22] MEDS: CARVEDILOL 12.5 MG TAB PO SCH (21:25)
[2020-02-22] MEDS: BIFIDOBACTERIUM INFANTIS 4 MG CAP PO SCH (21:25)
[2020-02-22] MEDS: PIPERACILLIN/TAZOBACTAM 3.375 GM in SODIUM CHLORIDE 0.9% 100ML 100 ML IVPB SCH (21:25)
[2020-02-22] MEDS: ATORVASTATIN 20 MG TAB PO SCH (21:25)
[2020-02-22] MEDS: ENOXAPARIN SODIUM 40 MG/0.4 ML SYG SUBCU SCH (21:26)
[2020-02-22] MEDS: SODIUM CHLORIDE 0.9% (FLUSH) 10 ML SYG IV SCH (21:39)
[2020-02-22] MEDS: ACETAMINOPHEN W/COD #3 TAB 1 EA TAB PO PRN (22:35)
[2020-02-22] MEDS: TEMAZEPAM 15 MG CAP PO PRN (22:35)
[2020-02-23] MEDS: PIPERACILLIN/TAZOBACTAM 3.375 GM in SODIUM CHLORIDE 0.9% 100ML 100 ML IVPB SCH ×4 (03:04→20:28)
[2020-02-23] MEDS: VANCOMYCIN HCL INJ 1,000 MG, VANCOMYCIN HCL INJ 250 MG in SODIUM CHLORIDE 0.9% 250ML 25... IVPB SCH ×3 (03:05→21:35)
[2020-02-23] MEDS ORDERED: VANCOMYCIN PER PHARMACY IVPB SCH (03:08)
[2020-02-23] MEDS ORDERED: VANCOMYCIN HCL INJ 1,000 MG, VANCOMYCIN HCL INJ 250 MG in SODIUM CHLORIDE 0.9% 250ML 25... IVPB SCH (03:12)
[2020-02-23] MEDS ORDERED: PANTOPRAZOLE SODIUM IV 40 MG VIAL ONE (04:06)
[2020-02-23] MEDS ORDERED: LEVOTHYROXINE SODIUM 0.1 MG TAB ONE (04:06)
[2020-02-23] MEDS ORDERED: LEVOTHYROXINE SODIUM 0.075 MG TAB ONE (04:06)
[2020-02-23] MEDS: PANTOPRAZOLE SODIUM IV 40 MG VIAL IV SCH (05:43)
[2020-02-23] MEDS: LEVOTHYROXINE SODIUM 0.1 MG, LEVOTHYROXINE SODIUM 0.075 MG PO SCH ×2 (05:44)
[2020-02-23] MEDS ORDERED: LEVOTHYROXINE SODIUM 0.075 MG TAB PO SCH (06:30)
--- NOTE | 2020-02-23 07:16 | RAD ---
EXAM: XR Chest, 2 Views CLINICAL HISTORY: The patient is 49 years old and is Male; sepsis of unknown origin TECHNIQUE: Frontal and lateral views of the chest. COMPARISON: Chest x-ray 02/22/2020. FINDINGS: Lungs: No consolidation. Pleural space: Unremarkable. No pneumothorax. Heart: Unremarkable. No cardiomegaly. Mediastinum: Unremarkable. Bones/joints: Unremarkable. Tubes, lines and devices: Left AICD. IMPRESSION: No acute findings in the chest. Electronically signed by: Costa Garay MD 02/23/2020 7:15 AM [facility]
[2020-02-23] MEDS: INSULIN LISPRO 100 UNITS/ML PEN SUBCU SCH ×4 (08:26→20:57)
[2020-02-23] MEDS: CARVEDILOL 12.5 MG TAB PO SCH ×2 (09:26→20:29)
[2020-02-23] MEDS: BIFIDOBACTERIUM INFANTIS 4 MG CAP PO SCH ×2 (09:26→20:29)
[2020-02-23] MEDS: tiZANidine 4 MG TAB PO SCH ×3 (09:26→20:30)
[2020-02-23] MEDS: ASPIRIN (CHEWABLE) 81 MG TAB PO SCH (09:26)
[2020-02-23] MEDS: FLUoxetine HCL 20 MG CAP PO SCH (09:26)
[2020-02-23] MEDS: SODIUM CHLORIDE 0.9% (FLUSH) 10 ML SYG IV SCH ×2 (09:26→20:30)
[2020-02-23] MEDS: AMIODARONE HCL 200 MG TAB PO SCH (09:26)
[2020-02-23] MEDS: INSULIN DETEMIR 100 UNITS/ML PEN SUBCU SCH (09:50)
--- NOTE | 2020-02-23 10:54 | US ---
EXAM DESCRIPTION: Renal (accession [id number]), Renal Arteries (accession [id number]): Ultrasound. CLINICAL HISTORY: Acute renal failure. COMPARISON: Two-dimensional ultrasound evaluation of the bilateral kidneys on the same visit. TECHNIQUE: Transcutaneous scanning: Grayscale mode. Doppler peak systolic and end-diastolic velocities/measurements of the abdominal aorta, renal arteries, intra renal arteries, and renal veins. FINDINGS: The right kidney measures 11.3 x 8.1 x 6.3 cm: volume 298.3 ml. Cortical echogenicity normal; normal cortical thickness. No hydronephrosis, no large calcifications. Smooth contour of the kidney with no perinephric fluid. Proximal ureter is not visualized. The left kidney measures 12.4 x 5.9 x 6.3 cm: volume 241.3 ml. 1.9 x 1.5 cm cyst. Cortical echogenicity is normal ; normal cortical thickness. No hydronephrosis or large calcifications. Smooth contour of the kidney with no perinephric fluid. Proximal ureter not visualized. Distal ureters not visualized bilaterally. Urinary bladder was visualized. Volume of 333.6 mL. Bilateral ureteral jets seen within the bladder on color Doppler. Aorta diameter (cm): Proximal: 2.1 Mid: 2.6 Distal: 2.4 HOANG- Right: Not measured. Left: Not measured. PSV (cm/sec): Aorta: 121 Right renal artery: 35 Left renal artery: 104 EDV (cm/sec): Right renal artery: 14 Left renal artery: 27 Renal veins: Visualized IVC: Visualized Intrarenal RI's: Proximal segmental Right: 0.73 Left: 0.76. Mid segmental Right: 0.7 Left: 0.68. Distal segmental Right: 0.8 Left: 1.0. Renal Aortic Ratio: Right RAR = RRA PSV/Aortic PSV = 35 /121= 0.29. Left RAR = LRA PSV/Aortic PSV = 140/121 = 1.1. End Diastolic Ratio: Right EDR = RRA EDV/RRA PSV = 14/35 = 0.4. Left EDR = LRA EDV/LRA PSV = 27/104= 0.26. Other: Proximal right renal artery was not seen. IMPRESSION: 1. Morphology of the kidneys bilaterally is unremarkable except for a 1.9 cm cyst in the left kidney. Normal cortical thickness and echogenicity. No echogenic stones or hydronephrosis. 2. Renal aortic ratios indicate no significant renal artery stenosis. Resistive indices of the bilateral renal parenchyma indicate renal vascular disease which could be acute, depending on the clinical setting. End diastolic ratio of the left kidney is borderline abnormal. Normal on the right. Electronically signed by: Michael Osuna MD 02/23/2020 10:53 AM [facility]
[2020-02-23] MEDS: LISINOPRIL 5 MG TAB PO SCH (13:02)
[2020-02-23] MEDS: ACETAMINOPHEN W/COD #3 TAB 1 EA TAB PO PRN (19:48)
[2020-02-23] MEDS: ENOXAPARIN SODIUM 40 MG/0.4 ML SYG SUBCU SCH (20:29)
[2020-02-23] MEDS: ATORVASTATIN 20 MG TAB PO SCH (20:29)
[2020-02-23] MEDS: TEMAZEPAM 15 MG CAP PO PRN (20:29)
[2020-02-24] MEDS: PIPERACILLIN/TAZOBACTAM 3.375 GM in SODIUM CHLORIDE 0.9% 100ML 100 ML IVPB SCH ×3 (05:23→21:14)
[2020-02-24] MEDS: PANTOPRAZOLE SODIUM IV 40 MG VIAL IV SCH (06:05)
[2020-02-24] MEDS: LEVOTHYROXINE SODIUM 0.1 MG, LEVOTHYROXINE SODIUM 0.075 MG PO SCH ×2 (06:05)
[2020-02-24] MEDS: INSULIN LISPRO 100 UNITS/ML PEN SUBCU SCH ×4 (07:17→21:16)
[2020-02-24] MEDS ORDERED: DOCUSATE SODIUM 100 MG CAP PO SCH (09:00)
[2020-02-24] MEDS: INSULIN DETEMIR 100 UNITS/ML PEN SUBCU SCH (09:43)
[2020-02-24] MEDS: BIFIDOBACTERIUM INFANTIS 4 MG CAP PO SCH ×2 (09:45→20:24)
[2020-02-24] MEDS: CARVEDILOL 12.5 MG TAB PO SCH ×2 (09:45→20:24)
[2020-02-24] MEDS: ASPIRIN (CHEWABLE) 81 MG TAB PO SCH (09:46)
[2020-02-24] MEDS: AMIODARONE HCL 200 MG TAB PO SCH (09:46)
[2020-02-24] MEDS: LISINOPRIL 5 MG TAB PO SCH (09:46)
[2020-02-24] MEDS: tiZANidine 4 MG TAB PO SCH ×3 (09:46→20:24)
[2020-02-24] MEDS: FLUoxetine HCL 20 MG CAP PO SCH (09:47)
[2020-02-24] MEDS: SODIUM CHLORIDE 0.9% (FLUSH) 10 ML SYG IV SCH ×2 (09:48→20:24)
[2020-02-24] MEDS: ACETAMINOPHEN W/COD #3 TAB 1 EA TAB PO PRN (10:30)
[2020-02-24] MEDS ORDERED: VANCOMYCIN HCL INJ 1,000 MG, VANCOMYCIN HCL INJ 500 MG in SODIUM CHLORIDE 0.9% 250ML 25... IVPB SCH (11:30)
--- NOTE | 2020-02-24 11:35 | PN ---
SUPERVISING PHYSICIAN: Eddi Harrison MD DATE: 02/23/20 SUBJECTIVE: The patient is sitting up in bed. He is feeling some better, we have advanced his diet and he is tolerating it so far and has had no further nausea or vomiting. His diarrhea has almost diminished completely. I did discuss with him that I had not received his echocardiogram report yet but we would discuss it after I received the results. OBJECTIVE: VITAL SIGNS: Temperature 97.8, heart rate 66, blood pressure 106/69, respiratory rate 18, oxygen saturation 93% on room air. CHEST: Essentially clear to auscultation. CARDIAC: Regular rate and rhythm. GI: Abdomen soft, nondistended, non-tender. Bowel sounds are positive. NEURO: He is awake, alert, and oriented x3. LABORATORY: WBCs have improved to 12,000 with hemoglobin 13.5, hematocrit 40.1. He has a left shift on his differential. Blood sugars have run in the 200s. Hemoglobin A1c is 8.3. Followup lactic acid is 1.8. Electrolytes are within normal limits. Bilirubin is 1.1. Preliminary blood cultures showed no growth after 24 hours. Urine culture is pending. RADIOLOGY: Renal ultrasound as well as aortic renal ultrasound: 1. Morphology of the kidneys bilaterally, is unremarkable except for the 1.9 cm cyst in the left kidney. Normal cortical thickness and echogenicity. No echogenic stones or hydronephrosis. 2. Renal aortic ratios indicate no significant renal artery stenosis. Resistive indices of the bilateral renal parenchyma indicate renal vascular disease which could be acute, depending on the clinical setting. End diastolic ratio of the left kidney is borderline abnormal, normal on the right. Chest x-ray shows no acute findings in the chest. Echocardiogram results show: 1. Technically difficult study due to poor endocardial resolution and body habitus. The left ventricle and other structures are poorly visualized, however, the left ventricular systolic function appears to be within lower limits of normal and I grossly estimate ejection fraction of around 45%. Regional wall motion abnormalities cannot be evaluated accurately. 2. Right ventricle not well visualized but appears to be functioning normally. 3. All the valves not well visualized but appear to be functioning normally. 4. No obvious pericardial effusion noted. ASSESSMENT: 1. Sepsis of unknown of etiology, hypotensive on admission with blood pressure 61/43, heart rate 115, WBCs 21,500 and lactic acid 3.5. 2. Acute on chronic kidney failure with baseline creatinine of 1 to 1.2. His admitting creatinine was 1.68. 3. Colitis versus gastritis with diarrhea and negative abdominal CT. 4. Diabetes mellitus, type 2. 5. Hypertension. 6. Coronary artery disease. 7. Ischemic cardiomyopathy. 8. Congestive heart failure with diastolic and systolic etiology, questionable exacerbation. He does have an ejection fraction of about 45%. 9. History of myocardial infarctions. 10. Hyperlipidemia. 11. Gastroesophageal reflux disease. 12. Morbid obesity. PLAN: We will continue present supportive care. I will increase his daily insulin as his A1c is quite elevated and he does not have good control of his blood sugars. I have also added a low dose of an gregg inhibitor due to his kidney failure as well as his congestive heart failure. He does have a beta jorge that he is taking at this time. I have ordered lab for in the morning. He still does not have an obvious source of infection, his lab work and clinical picture are unproving. We will continue to monitor him closely and follow as needed #[id number] [facility]
[2020-02-24] MEDS: VANCOMYCIN HCL INJ 1,000 MG, VANCOMYCIN HCL INJ 250 MG in SODIUM CHLORIDE 0.9% 250ML 25... IVPB SCH (12:19)
[2020-02-24] MEDS: ENOXAPARIN SODIUM 40 MG/0.4 ML SYG SUBCU SCH (20:23)
[2020-02-24] MEDS: ATORVASTATIN 20 MG TAB PO SCH (20:23)
[2020-02-24] MEDS: TEMAZEPAM 15 MG CAP PO PRN (20:25)
[2020-02-25] MEDS: ACETAMINOPHEN W/COD #3 TAB 1 EA TAB PO PRN (05:17)
[2020-02-25] MEDS: PIPERACILLIN/TAZOBACTAM 3.375 GM in SODIUM CHLORIDE 0.9% 100ML 100 ML IVPB SCH ×2 (05:19→15:16)
[2020-02-25] MEDS: LEVOTHYROXINE SODIUM 0.1 MG, LEVOTHYROXINE SODIUM 0.075 MG PO SCH ×2 (06:02)
[2020-02-25] MEDS: PANTOPRAZOLE SODIUM IV 40 MG VIAL IV SCH (06:03)
[2020-02-25] MEDS: INSULIN LISPRO 100 UNITS/ML PEN SUBCU SCH ×2 (07:14→12:13)
[2020-02-25] MEDS: ASPIRIN (CHEWABLE) 81 MG TAB PO SCH (09:25)
[2020-02-25] MEDS: LISINOPRIL 5 MG TAB PO SCH (09:25)
[2020-02-25] MEDS: AMIODARONE HCL 200 MG TAB PO SCH (09:25)
[2020-02-25] MEDS: INSULIN DETEMIR 100 UNITS/ML PEN SUBCU SCH (09:25)
[2020-02-25] MEDS: BIFIDOBACTERIUM INFANTIS 4 MG CAP PO SCH (09:25)
[2020-02-25] MEDS: CARVEDILOL 12.5 MG TAB PO SCH (09:25)
[2020-02-25] MEDS: tiZANidine 4 MG TAB PO SCH ×2 (09:25→15:16)
[2020-02-25] MEDS: FLUoxetine HCL 20 MG CAP PO SCH (09:25)
[2020-02-25] MEDS: metFORMIN HCL 500 MG TAB PO SCH (09:35)
--- NOTE | 2020-02-25 11:21 | PN ---
SUPERVISING PHYSICIAN: Eddi Harrison MD DATE: 02/24/20 SUBJECTIVE: The patient says he has not really had anymore abdominal pain since his diarrhea has resolved. He is actually doing okay with an ADA diet. No chest pain. OBJECTIVE: VITAL SIGNS: Temperature 97.5, pulse 67, blood pressure 125/82, respiratory rate 18, oxygen saturation 95% on room air. GENERAL: The patient looks to be resting comfortably. He does not seem to be in any distress. No complaints. He is alert. CHEST: Lung sounds are fairly clear, just distant due to body habitus. CARDIAC: Heart sounds difficult to hear due to body habitus. GI: Abdomen obese, nondistended, non-tender. Bowel sounds are positive. NEURO: He is alert, and oriented x3. LABORATORY: White count down to 12,000, bands no longer present. Hemoglobin 13.5, hematocrit 40.1, platelet count 185,000. Blood sugars ranging from 194 and 274. MICROBIOLOGY: Blood cultures are showing no growth at 48 hours. Urine culture showed no growth. RADIOLOGY: No additional radiographic studies today. ASSESSMENT: 1. Sepsis with unknown etiology, patient showing initially hypotension requiring pressors but showing stable at this point after fluids. 2. Acute on chronic renal failure. 3. Colitis probably viral gastroenteritis with some diarrhea but no abdominal findings concerning on CT. 4. Diabetes mellitus, type 2. 5. Hypertension. 6. Coronary artery disease. 7. Congestive heart failure with combined diastolic/systolic etiology with last echocardiogram showing ejection fraction of 45%. 8. History of previous myocardial infarctions. 9. Hyperlipidemia. 10. Gastroesophageal reflux disease. 11. Morbid obesity. PLAN: We will continue current plan of care at this point. He is on an gregg inhibitor. His antibiotic coverage, I discontinued his vancomycin, he remains on Zosyn given that he was showing a significant sepsis with some hypotension. We are working to control his blood sugars better. His lab seems to be stable. Will encourage fluids cautiously given his ejection fraction and he is going to be up to a chair. We have encouraged good bronchial hygiene to prevent any atelectasis and underlying development of pneumonia. He does remain on Lovenox but given his significant elevated D-dimer of 4490, we may need to consider further anticoagulation on discharge, although there are no other signs of any kind of DVT but he has morbid obesity and is certainly at higher risk for PE and thrombus events. Hopefully, we will be able to discharge him in the next 24-48 hours. Until then, we will follow his cultures and work to get him back to outpatient management as possible. #[id number] [facility]
[2020-02-25] MEDS: SODIUM CHLORIDE 0.9% (FLUSH) 10 ML SYG IV SCH (12:14)
[2020-02-25 14:07] VITALS: BP 120/62; TEMP 97.8; O2SAT 98
[2020-02-25] MEDS: IV SET AND CAP CHANGE INJ INJ SCH (15:16)
--- NOTE | 2020-03-04 11:23 | DS ---
SUPERVISING PHYSICIAN: Eddi Harrison MD ADMISSION DIAGNOSIS: 1. Sepsis of unknown of etiology. He as hypotensive on admission with blood pressure 61/43, heart rate 115, WBCs 21,500 and lactic acid 3.5. 2. Acute on chronic kidney failure with baseline creatinine of 1 to 1.1. His admitting creatinine was 1.68. 3. Colitis versus gastritis with diarrhea and negative abdominal CT. 4. Diabetes mellitus, type 2. 5. Hypertension. 6. Coronary artery disease. 7. Ischemic cardiomyopathy. 8. Congestive heart failure of unknown etiology. 9. Hypothyroidism with admitting TSH of 14.8. 10. History of myocardial infarctions. 11. Hyperlipidemia. 12. Gastroesophageal reflux disease. 13. Morbid obesity. DISCHARGE DIAGNOSIS: 1. Sepsis with unknown etiology, patient showing initially hypotension requiring pressors but showing stable at this point after fluids. 2. Acute on chronic renal failure. 3. Colitis probably viral gastroenteritis with some diarrhea but no abdominal findings concerning on CT. 4. Diabetes mellitus, type 2. 5. Hypertension. 6. Coronary artery disease. 7. Congestive heart failure with combined diastolic/systolic etiology with last echocardiogram showing ejection fraction of 45%. 8. History of previous myocardial infarctions. 9. Hyperlipidemia. 10. Gastroesophageal reflux disease. 11. Morbid obesity. REASON FOR HOSPITALIZATION: This is a 49-year-old male patient who presented to the Emergency Room secondary to dizziness and weakness after he woke up this morning after having 5 episodes of diarrhea. He denies any blood in the diarrhea. He had no vomiting. He does have ischemic cardiomyopathy and is followed by Dr. La in [place]. He has congestive heart failure as well as chronic renal insufficiency. He also has hypothyroidism and diabetes mellitus, type 2. He is a patient of Dr. Durbin. His initial vital signs showed a temperature of 96.8, heart rate 115, blood pressure 61/43, respiratory rate 20, O2 saturation 95%. He was given fluids and actually had to be placed on Levophed for some time, but that eventually was discontinued once he was hydrated. Lab studies were done. His WBCs were 21,500, hemoglobin 16.7, hematocrit 49.1. D-dimer 4,490. Sodium 135, potassium 4.2, chloride 99, BUN 17, creatinine 1.68. Baseline creatinine is about 1 to 1.1. Glucose 279, lactic acid 3.5, magnesium 1.5. Total bilirubin 1.2, AST 48, CRP 1.1, TSH 14.81. Urinalysis was unremarkable except for 100 of urine protein, 500 urine glucose and 5 to 10 urine WBCs. Blood cultures were drawn. COVID testing was negative. Chest x-ray showed no acute findings in the chest. Abdomen and pelvis CT shows hepatomegaly with no focal liver lesions. Otherwise, no acute process in the abdomen or pelvis. Chest CT showed a pacemaker in place and no acute cardiopulmonary pathology detected. He was given some Zosyn and Solu- Medrol. He was admitted to the Floor and was given some magnesium replacement as well as started on vancomycin. LABORATORY: White count on discharge was 6,300, hemoglobin 13.1, hematocrit 38.6, platelet count 162,000. Differential was without a left shift. Coagulation studies did show D-dimer 4490. Chemistries showed electrolytes within normal limits, creatinine 1.09. Lactic acid on admission was 3.5 which normalized with fluids to 1.8. Troponins all within normal limits. TSH elevated at 14.8. Free T4 was normal. Magnesium low at 1.5 which was replaced. MICROBIOLOGY: Urine culture showed no growth. Blood culture showed no growth at 5 days. Nasal swab for COVID was negative. RADIOLOGY: He had multiple imaging studies done including chest x-ray on admission which showed no acute findings in the chest per radiologic interpretation. Abdominopelvic CT per radiologic interpretation with contrast showed no acute processes within the pelvis. Please see that report for full details. He also had a CT of the chest and per radiologic interpretation showed pacemaker seen. No acute cardiopulmonary pathology was detected. Echocardiogram showed ejection fraction 45%. Please see that report for details. He also had an aortorenal ultrasound per radiologic interpretation which showed morphology of the kidneys unremarkable except for 1.9 cm cyst in the left kidney. Renal aortic ratios indicate no significant renal artery stenosis. He had a renal ultrasound and again morphology of kidneys was unremarkable and renal artery ratios indicated no significant renal artery disease. HOSPITAL COURSE: Mr. Meade was admitted for sepsis with no obvious etiology, felt to probably be colitis or viral gastroenteritis with associated diarrhea. He was treated with fluids, initially vancomycin, Zosyn and then defervesced due to the fact that there were no obvious signs of bacterial infection on complete workup and the patient was clinically stable. It was felt he had improved clinically enough to continue with outpatient management and followup with his primary care provider, Dr. Castro. PLAN: Mr. Meade was discharged on 02/25/20. He was to continue diabetic diet, increase activity as tolerated and followup with Dr. Castro. He was to call his office on discharge to set up an appointment. No medications were provided on discharge. All other medications prior to hospitalization were continued. CONDITION ON DISCHARGE: Stable and improved. DISPOSITION: The patient was discharged home. #[id number] [facility]
== END 2020-02-25 14:20 | disposition home or self-care (01) | DRG 872 ==
LOC: ER 05:07 → MS 11:21 → OBSVTOIN 11:21
PROVIDERS: ADMIT Nurse Practitioner Acute Care; ATTEND Nurse Practitioner Family
PROC: BW211ZZ Computerized Tomography (CT Scan) of Abdomen and Pelvis using Low Osmolar Contrast (ICD-10-PCS; principal; 2020-02-22)
PROC: BW241ZZ Computerized Tomography (CT Scan) of Chest and Abdomen using Low Osmolar Contrast (ICD-10-PCS; 2020-02-22)
DX: A41.9 Sepsis, unspecified organism (principal); N17.9 Acute kidney failure, unspecified; I13.0 Hypertensive heart and chronic kidney disease with heart failure and stage 1 through stage 4 chronic kidney disease, or unspecified chronic kidney disease; I50.42 Chronic combined systolic (congestive) and diastolic (congestive) heart failure; Z68.42 Body mass index [BMI] 45.0-49.9, adult; A08.4 Viral intestinal infection, unspecified; I95.9 Hypotension, unspecified; N18.9 Chronic kidney disease, unspecified; E11.22 Type 2 diabetes mellitus with diabetic chronic kidney disease; I25.10 Atherosclerotic heart disease of native coronary artery without angina pectoris; E78.5 Hyperlipidemia, unspecified; K21.9 Gastro-esophageal reflux disease without esophagitis; E03.9 Hypothyroidism, unspecified; E66.01 Morbid (severe) obesity due to excess calories; I25.2 Old myocardial infarction; Z95.0 Presence of cardiac pacemaker; Z87.891 Personal history of nicotine dependence; Z79.4 Long term (current) use of insulin; Z79.82 Long term (current) use of aspirin; Z79.899 Other long term (current) drug therapy

== ENCOUNTER 2020-03-08 12:19 | Observation (INO) | payer MEDICARE ==
[2020-03-08] MEDS ORDERED: ONDANSETRON ODT 8 MG TAB SL ONE (12:46)
--- NOTE | 2020-03-08 13:25 | RAD ---
EXAM DESCRIPTION: Abdomen Series CLINICAL HISTORY: 49 years Male, nvd 24 hours COMPARISON: Abdominal radiograph 07/28/2016. Chest radiograph 02/23/2020. TECHNIQUE: 5 views radiograph of the chest and abdomen. IMPRESSION: Enlarged heart. Cardiac device in the left chest wall. Elevation left hemidiaphragm as before. No pleural effusion or pneumothorax. Nondilated bowel gas pattern. No pathologic calcification overlying the renal shadows or expected course of the ureters. Air-fluid level within the stomach. Thoracolumbar spondylosis. Phleboliths within the right and left hemipelvis. Electronically signed by: Eugene Joyner MD 03/08/2020 1:23 PM [facility]
[2020-03-08] MEDS ORDERED: MAGNESIUM SULFATE PREMIX 4GM 4 GM in PREMIX BAG 1 BAG IVPB ONE (13:56)
[2020-03-08] MEDS ORDERED: SODIUM CHLORIDE 0.9% 1000ML 1,000 ML IVS ONE ×2 (13:56→16:30)
[2020-03-08] MEDS ORDERED: PROMETHAZINE HCL INJ 25 MG in SODIUM CHLORIDE 0.9% 50ML 50 ML IVPB ONE (14:18)
[2020-03-08] MEDS ORDERED: PANTOPRAZOLE SODIUM IV 40 MG VIAL IV ONE (15:07)
[2020-03-08] MEDS ORDERED: MORPHINE SULFATE INJ 10 MG/ML VIAL IV ONE (16:00)
--- NOTE | 2020-03-08 17:06 | ED.PDOC ---
History of Present Illness - General Chief Complaint: GI Problem Stated Complaint: N/V/D, dizziness, abd cramping Time Seen by Provider: 03/08/20 12:20 Source: patient Exam Limitations: no limitations - History of Present Illness Initial Comments: The patient is a 49-year-old male presented emergency room secondary to nausea vomiting and diarrhea primarily over the last 2 days. He may have had a little bit of nausea and very mild diarrhea a day or 2 before that. No real abdominal pain. He is an insulin-dependent diabetic with significant gastroparesis issues. He was actually admitted earlier in the month with similar problems but in a more advanced state. He denies any fever. No sore throat or runny nose. He denies any coronavirus exposure. No syncope or near syncope. The patient does vomit multiple times here including dry heaving. The patient is having watery diarrhea but no blood in it. Blood sugar is moderately elevated here but not severely. Timing/Duration: other - 2 days Severity: moderate Improving Factors: nothing Worsening Factors: eating Associated Symptoms: loss of appetite, malaise, nausea/vomiting Allergies/Adverse Reactions: Allergies NO KNOWN ALLERGY Allergy (Verified 03/08/20 13:09) Home Medications: Ambulatory Orders Aspirin [Familia Chewable Low Dose] 81 mg PO DAILY #0 11/10/12 Fluoxetine HCl [Prozac] 20 mg PO DAILY #0 11/10/12 Atorvastatin Calcium [Lipitor] 40 mg PO DAILY 08/07/13 Carvedilol 25 mg PO BID 08/07/13 Spironolactone [Aldactone] 25 mg PO DAILY 08/07/13 Levothyroxine Sodium 150 mcg PO DAILY 01/04/15 Metformin HCl 500 mg PO BID 01/04/15 Docusate Sodium [Stool Softener] 100 mg PO KVNG-OTH-DAY 12/15/15 Insulin Lispro [Humalog] 0 - 15 unit SUBCU TIDFDHS 12/15/15 Ondansetron [Zofran Odt] 4 mg PO Q4H PRN #10 tab 07/29/16 Amiodarone HCl 200 mg PO DAILY 02/13/19 tiZANidine [Zanaflex] 4 mg PO TID 02/13/19 Promethazine Tab [Phenergan Tablet] 25 mg PO Q6H PRN #20 tab 09/14/19 Insulin Glargine [Toujeo Klarissaman] 38 unit SC DAILY 02/22/20 Review of Systems - Review of Systems Constitutional: States: malaise, weakness - Generalized EENTM: States: no symptoms reported Respiratory: States: no symptoms reported Cardiology: States: no symptoms reported Gastrointestinal/Abdominal: States: abdominal pain, diarrhea, nausea, vomiting Genitourinary: States: no symptoms reported Musculoskeletal: States: other - Chronic pain only Skin: States: no symptoms reported Neurological: States: no symptoms reported Endocrine: States: increased thirst Hematologic/Lymphatic: States: no symptoms reported All other Systems: No Change from Baseline Past Medical History (General) - Patient Medical History Hx Seizures: No Hx Stroke: No Hx Dementia: No Hx Asthma: No Hx of COPD: No Hx Cardiac Disorders: Yes - HI Hx Congestive Heart Failure: Yes Hx Pacemaker: Yes Hx Hypertension: Yes Hx Thyroid Disease: Yes - Hypo Hx Diabetes: Yes Hx Gastroesophageal Reflux: Yes Hx Renal Disease: No Hx Cancer: No Hx of HIV: No Hx Hepatitis C: No Hx MRSA: No MRSA Source:: Wound Surgical History: pacemaker - Vaccination History Hx Tetanus, Diphtheria Vaccination: No Hx Influenza Vaccination: No Hx Pneumococcal Vaccination: No - Social History Hx Tobacco Use: No Hx Chewing Tobacco Use: No Hx Alcohol Use: No Hx Substance Use: No Hx Substance Use Treatment: No Hx Depression: No Hx Physical Abuse: No Hx Emotional Abuse: No Hx Suspected Abuse: No - Female History Patient is a Female of Child Bearing Age (10 -59 yrs old): No Patient : No Family Medical History - Family History Mother Living Status: Cause of : colon CA Hx Family Congestive Heart Failure: Yes Hx Family Hypertension: Yes Hx Family Diabetes: Yes Hx Family Cancer: Yes Father Living Status: Cause of : lung CA Hx Family Congestive Heart Failure: Yes Hx Family Hypertension: Yes Physical Exam - Physical Exam General Appearance: Alert, Ill Appearing Eye Exam: bilateral normal Ears, Nose, Throat: hearing grossly normal, normal pharynx Neck: non-tender, supple Respiratory: lungs clear, normal breath sounds, no respiratory distress, no accessory muscle use Cardiovascular/Chest: normal peripheral pulses, no edema, other - Regular rate Peripheral Pulses: radial,right: 2+, radial,left: 2+ Gastrointestinal/Abdominal: non tender - Morbidly obese. Generalized discomfort to palpation., soft Rectal Exam: deferred Back Exam: no CVA tenderness, no vertebral tenderness Extremity: normal range of motion, non-tender, no calf tenderness, normal capillary refill Skin Exam: normal color Comments: Vital Signs - 24 hr 03/08/20 03/08/20 03/08/20 12: 12:30 13:00 Temperature 97.7 F Pulse Rate [ 102 H 102 H 102 H Pulse ox] Respiratory 18 18 22 Rate Blood Pressure 167/93 183/143 [L arm] O2 Sat by Pulse 92 L 95 Oximetry 03/08/20 03/08/20 03/08/20 13:29 13:30 14:00 Temperature Pulse Rate [ 101 H 116 H 93 H Pulse ox] Respiratory 16 Rate Blood Pressure 160/93 160/104 166/96 [L arm] O2 Sat by Pulse 95 96 94 L Oximetry 03/08/20 15:00 Temperature Pulse Rate [ 99 H Pulse ox] Respiratory 18 Rate Blood Pressure 190/98 [L arm] O2 Sat by Pulse 92 L Oximetry Progress - Progress Progress: 03/08/20 17:09 The patient is a 49-year-old male presented emergency room secondary to nausea vomiting and diarrhea. The patient does have some significant dehydration with mild acute on chronic renal failure. I believe that this is related to gastrointestinal dysfunction related to his diabetes likely gastroparesis. The patient has received several rounds of nausea medication as well as a round of morphine. He has also received acid reducing medications. He has received a liter of IV fluids and is going to be placed on maintenance IV fluids. We are trying to be careful not to fluid overload this patient as he does have a history of congestive heart failure. No evidence of hypotension, unlike last time at this point. The patient will need to be admitted for further management of his nausea and vomiting. If he continues to vomit, a NG tube may be warranted. I do not see evidence of a bowel obstruction on the x- ray. Again he is having diarrhea from below. At this point in time I do not believe the primary etiology is infectious so antibiotics will be avoided for now. Obviously if the picture changes then that management may need to be changed. Admit for continued care. The patient is not suitable for outpatient treatment at this time. dina houser [phone] - Results/Orders Results/Orders: Laboratory Tests 03/08/20 03/08/20 03/08/20 13:00 13:00 13:00 WBC 12.4 H RBC 4.88 Hgb 14.4 Hct 42.2 MCV 86.6 MCH 29.5 MCHC 34.0 RDW 14.5 Plt Count 239 MPV 8.2 Absolute Neuts (auto) 10.00 H Absolute Lymphs (auto) 1.30 Absolute Monos (auto) 0.80 Absolute Eos (auto) 0.10 Absolute Basos (auto) 0.10 Neutrophils % 81.1 H Lymphocytes % 10.8 L Monocytes % 6.1 Eosinophils % 1.1 Basophils % 0.9 PT 10.4 INR 1.05 PTT (SP) 22.3 D-Dimer, Quantitative 2380.0 H* Sodium 133 L Potassium 5.0 Chloride 99 L Carbon Dioxide 19 L Anion Gap 20.0 H BUN 24 H Creatinine 1.38 H BUN/Creatinine Ratio 17.4 Random Glucose 243 H Serum Osmolality 278.5 Lactic Acid Calcium 9.1 Magnesium Total Bilirubin 1.1 H AST 50 H ALT 61 H Alkaline Phosphatase 56 Creatine Kinase 37 L CK-MB (CK-2) 2.0 CK-MB (CK-2) % Not Reportable Troponin I < 0.02 B-Natriuretic Peptide < 15.0 Serum Total Protein 7.8 Albumin 4.3 Globulin 3.5 Albumin/Globulin Ratio 1.2 Amylase 34 Lipase TSH Urine Color Urine Appearance Urine pH Ur Specific Hanson Urine Protein Urine Glucose (UA) Urine Ketones Urine Blood Urine Nitrite Urine Bilirubin Urine Urobilinogen Ur Leukocyte Esterase Urine RBC Urine WBC Ur Epithelial Cells Amorphous Sediment Urine Bacteria Urine Mucus 03/08/20 03/08/20 03/08/20 13:00 13:00 13:20 WBC RBC Hgb Hct MCV MCH MCHC RDW Plt Count MPV Absolute Neuts (auto) Absolute Lymphs (auto) Absolute Monos (auto) Absolute Eos (auto) Absolute Basos (auto) Neutrophils % Lymphocytes % Monocytes % Eosinophils % Basophils % PT INR PTT (SP) D-Dimer, Quantitative Sodium Potassium Chloride Carbon Dioxide Anion Gap BUN Creatinine BUN/Creatinine Ratio Random Glucose Serum Osmolality Lactic Acid 2.0 Calcium Magnesium 1.2 L Total Bilirubin AST ALT Alkaline Phosphatase Creatine Kinase CK-MB (CK-2) CK-MB (CK-2) % Troponin I B-Natriuretic Peptide Serum Total Protein Albumin Globulin Albumin/Globulin Ratio Amylase Lipase 29 TSH 2.91 Urine Color Yellow Urine Appearance Clear Urine pH 5.0 Ur Specific Hanson 1.020 Urine Protein Negative Urine Glucose (UA) 500 H Urine Ketones Negative Urine Blood Negative Urine Nitrite Negative Urine Bilirubin Negative Urine Urobilinogen 0.2 Ur Leukocyte Esterase Negative Urine RBC 0-1 Urine WBC 3-5 H Ur Epithelial Cells 5-10 Amorphous Sediment Trace Urine Bacteria 1+ Urine Mucus Trace EKG shows mild sinus tachycardia at 101 bpm. Normal axis. Mild QT prolongation. Borderline R wave progression. No definitive ST segment or T wave changes indicative of acute ischemia. X-ray shows cardiomegaly that looks to be stable. There is an air-fluid level in the stomach. See report for details. Respiratory 2 panel is negative Departure - Departure Clinical Impression: Gastroparesis, Moderate dehydration, Hyperglycemia, Hypomagnesemia Diarrhea Qualifiers: Diarrhea type: functional diarrhea Qualified Code(s): K59.1 - Functional diarrhea Acute on chronic renal failure Qualifiers: Acute renal failure type: unspecified Chronic kidney disease stage: stage 3 (moderate) Chronic kidney disease stage 3 subtype: unspecified whether 3a or 3b Qualified Code(s): N17.9 - Acute kidney failure, unspecified; N18.30 - Chronic kidney disease, stage 3 unspecified Disposition: Admit Patient Departure Forms: ED Discharge - Pt. Copy, Patient Portal Self Enrollment Referrals: Wilfred Castro MD [Primary Care Provider] - 1-2 Weeks Home Medications: Ambulatory Orders Aspirin [Familia Chewable Low Dose] 81 mg PO DAILY #0 11/10/12 Fluoxetine HCl [Prozac] 20 mg PO DAILY #0 11/10/12 Atorvastatin Calcium [Lipitor] 40 mg PO DAILY 08/07/13 Carvedilol 25 mg PO BID 08/07/13 Spironolactone [Aldactone] 25 mg PO DAILY 08/07/13 Levothyroxine Sodium 150 mcg PO DAILY 01/04/15 Metformin HCl 500 mg PO BID 01/04/15 Docusate Sodium [Stool Softener] 100 mg PO KVNG-OTH-DAY 12/15/15 Insulin Lispro [Humalog] 0 - 15 unit SUBCU TIDFDHS 12/15/15 Ondansetron [Zofran Odt] 4 mg PO Q4H PRN #10 tab 07/29/16 Amiodarone HCl 200 mg PO DAILY 02/13/19 tiZANidine [Zanaflex] 4 mg PO TID 02/13/19 Promethazine Tab [Phenergan Tablet] 25 mg PO Q6H PRN #20 tab 09/14/19 Insulin Glargine [Toujeo Solostar] 38 unit SC DAILY 02/22/20 Decision To Admit - Decistion To Admit Decision to Admit Reason: Medical Nature Decision to Admit Date: 03/08/20 Decision to Admit Time: 17:12
--- NOTE | 2020-03-08 17:56 | HP ---
SUPERVISING PHYSICIAN: DEYANIRA AUGUSTINE MD CHIEF COMPLAINT: NAUSEA, VOMITING, DIARRHEA HISTORY OF PRESENT ILLNESS: This is a 49-year-old male patient who came to the Emergency Room due to nausea, vomiting, diarrhea that had been going on for 2 days. He does not have any real abdominal pain but he does have a history of diabetes mellitus and he is poorly compliant. He also has a history of gastroparesis and was actually in the hospital about 3 weeks ago for the same symptoms. At that time, he was treated with Levaquin and Flagyl. He was actually so dehydrated that prior to getting fluids he was hypotensive and had to have Levophed. This time, he received fluids but his vital signs have been stable. He also has a history of congestive heart failure with a fairly significant diastolic dysfunction and an ejection fraction of about 45% from his echocardiogram three weeks ago. His vital signs on presentation were temperature 97.7, heart rate of 102, blood pressure 167/93, respiratory rate 18, oxygen saturation 92% on room air. He received a liter of fluids. His labs were done, his WBCs were slightly elevated at 12.4 but the rest of his CBC was unremarkable. His D-dimer was 3,380 but his prior admission had a D-dimer over 4,000. There was no shortness of breath. His chemistries showed a sodium of 133, potassium 5, chlorides 99, carbon dioxide 19, BUN 24, creatinine 1.38, his baseline creatinine is about 0.9 to 1. Glucose 243, lactic acid 2, magnesium 1.2, bilirubin 1.1. AST 50, ALT 61, creatinine kinase 37, lipase 29, TSH 2.91. Urinalysis showed 500 urine glucose and 3 to 5 WBCs. His C. difficile was negative for both antigen and toxin. Respiratory panel was negative for Covid- 19. Blood cultures were drawn. Abdominal x-ray showed enlarged heart, cardiac device in the left chest wall, elevation of the left hemidiaphragm as before, no pleural effusion or pneumothorax, nondilated bowel gas pattern. No pathological calcification overlying the renal shadows or expected course of the ureter. Air-fluid levels within the stomach. Thoracolumbar spondylosis with phleboliths within the right and left pelvis. He was given Phenergan, Zofran and morphine in the Emergency Room. It did help the nausea and vomiting subside but he continued to be nauseated. He was also given a liter of fluid and was admitted to the Floor in stable condition. PAST MEDICAL HISTORY: 1. Congestive heart failure with diastolic dysfunction and ejection fraction of 45% per echocardiogram 02/2020. 2. Diabetes mellitus, type 2. 3. Hypertension. 4. Ischemic cardiomyopathy. 5. Renal insufficiency. 6. Coronary artery disease. 7. Hypothyroidism. 8. Gastroesophageal reflux disease. 9. Hyperlipidemia. 10. Morbid obesity. 11. Myocardial infarction x2. PAST SURGICAL HISTORY: 1. Pacemaker/defibrillator implantation. OUTPATIENT MEDICATIONS: Per the EMR and awaiting verification. ALLERGIES: NO KNOWN DRUG ALLERGIES. SOCIAL HISTORY: He lives in [place]. He sees Dr. Castro. He has a previous history of tobacco use but quit about 12 years ago. No history of ETOH or illicit drug use. REVIEW OF SYSTEMS: GENERAL: Positive for weakness, negative for fever or fatigue. HEENT: Negative for sinus symptoms, ear pain, vision changes or sore throat. RESPIRATORY: Negative for wheezing, coughing or shortness of breath. CARDIAC: Negative for chest pain, palpitations or tachycardia. GASTROINTESTINAL: As per history of present illness. GENITOURINARY: Negative for hematuria, dysuria or polyuria. SKIN: Negative for lesions or rashes. NEUROLOGIC: Negative for headache or seizures. PHYSICAL EXAMINATION: VITAL SIGNS: Temperature 98, heart rate 94, blood pressure 193/95, respiratory rate 21, O2 saturation 94% on room air. GENERAL: This is a 49-year-old morbidly obese male who is lying in his hospital bed. He looks to be moderately ill. HEENT: Normocephalic, atraumatic. Pupils are equal and reactive. Oropharynx is clear. Oral mucous membranes are dry. NECK: Supple without mass. RESPIRATORY: Essentially clear to auscultation bilaterally, somewhat diminished at the bases. CARDIOVASCULAR: Regular rate and rhythm, at times he is slightly tachycardiac. GASTROINTESTINAL: Abdomen is soft, diffusely tender, no rebound tenderness or guarding. Bowel sounds are positive. RECTAL: Deferred. EXTREMITIES: No cyanosis, clubbing or edema. NEUROLOGIC: Awake, alert and oriented times three. Cranial nerves II-XII are grossly intact as tested. SKIN: Warm, pink and dry. LABORATORY: Labs and films are as per history of present illness. IMPRESSION: 1. Nausea, vomiting, diarrhea with dehydration. 2. Poorly controlled diabetes mellitus type 2 with gastroparesis. 3. Leukocytosis that is mild, most likely an inflammatory response. We will monitor for gastroenteritis. 4. Elevated D-dimer with previous admission for elevated D-dimer. There are no signs or symptoms of pulmonary embolism for DVT. 5. Acute kidney failure injury versus chronic renal insufficiency with baseline creatinine of about 0.9 to 1. His admitting creatinine was 1.38. 6. Hypomagnesemia. 7. Elevated transaminase. 8. History of congestive heart failure without exacerbation, diastolic in etiology with an ejection fraction about 45% on echocardiogram on 02/22/20. 9. Hypertension. 10. Coronary artery disease. 11. Ischemic cardiomyopathy. 12. Hypothyroidism. 13. Gastroesophageal reflux disease. 14. Morbid obesity. PLAN: The patient has been placed in observation. He will be n.p.o. tonight and will have IV fluids overnight. I will hold on starting his home medications until the nausea and vomiting has subsided. At this point, I have not put him on any antibiotics. If his WBCs worsen or if there are signs or symptoms of infection such as gastroparesis, we could start him on antibiotics tomorrow. He did have antibiotics in the hospital and after discharge three weeks ago. We will repeat his lab in the morning and will follow his kidney function as well as his other labs. I have put him on sliding scale insulin per protocol. He will have Lovenox for DVT prophylaxis, a PPI for ulcer prophylaxis. I have also given him p.r.n. Haldol for his gastroparesis and p.r.n. Zofran and Phenergan for his nausea. I will also do a hemoglobin A1C for in the morning and as well as his chest x-ray and a BNP, although there are no signs or symptoms of exacerbation of his 2-view chest. I will also start him on Lasix IV and we will follow and treat as needed. #[id number] [facility]
[2020-03-08] MEDS ORDERED: METOCLOPRAMIDE HCL INJ 10 MG/2 ML VIAL IV ONE (18:12)
[2020-03-08] MEDS ORDERED: SODIUM CHLORIDE 0.9% (FLUSH) 10 ML SYG IV PRN (18:27)
[2020-03-08] MEDS ORDERED: IV SET AND CAP CHANGE INJ INJ SCH (18:30)
[2020-03-08] MEDS ORDERED: ONDANSETRON INJ 4 MG/2 ML VIAL IV PRN (18:36)
[2020-03-08] MEDS ORDERED: HALOPERIDOL LACTATE INJ 5 MG/ML VIAL IM PRN ×2 (18:37→22:15)
[2020-03-08] MEDS ORDERED: DEXTROSE 50% 25 GM/50 ML SYG IV PRN (18:38)
[2020-03-08] MEDS ORDERED: GLUCAGON INJ 1 MG VIAL SUBCU PRN (18:38)
[2020-03-08] MEDS ORDERED: DEX 5% W/NACL 0.9% 1000ML 1,000 ML IVS ONE (19:26)
[2020-03-08] MEDS ORDERED: HALOPERIDOL LACTATE INJ 5 MG/ML VIAL ONE ×2 (19:35→23:08)
[2020-03-08] MEDS: DEX 5% W/NACL 0.9% 1000ML 1,000 ML IVS PRN (19:49)
[2020-03-08] MEDS ORDERED: PROMETHAZINE HCL INJ 25 MG/ML VIAL ONE (20:13)
[2020-03-08] MEDS ORDERED: SODIUM CHLORIDE 0.9% 50ML 50 ML ONE (20:14)
[2020-03-08] MEDS: PROMETHAZINE HCL INJ 25 MG in SODIUM CHLORIDE 0.9% 50ML 50 ML IVPB PRN (20:16)
[2020-03-08] MEDS ORDERED: INSULIN LISPRO 100 UNITS/ML PEN SUBCU ONE (21:24)
[2020-03-08] MEDS: INSULIN LISPRO 100 UNITS/ML PEN SUBCU SCH (21:25)
[2020-03-08] MEDS ORDERED: CARVEDILOL 12.5 MG TAB ONE (23:08)
[2020-03-08] MEDS: CARVEDILOL 12.5 MG TAB PO SCH (23:11)
[2020-03-09] MEDS ORDERED: PROCHLORPERAZINE INJ 10 MG/2 ML VIAL IV ONE (00:06)
[2020-03-09] MEDS ORDERED: METOCLOPRAMIDE HCL INJ 10 MG/2 ML VIAL ONE ×4 (00:17→17:23)
[2020-03-09] MEDS: METOCLOPRAMIDE HCL INJ 10 MG/2 ML VIAL IV SCH ×4 (00:20→17:26)
[2020-03-09] MEDS ORDERED: DEX 5% W/NACL 0.9% 1000ML 1,000 ML IVS ONE (03:52)
[2020-03-09] MEDS: DEX 5% W/NACL 0.9% 1000ML 1,000 ML IVS PRN (03:53)
[2020-03-09] MEDS ORDERED: PANTOPRAZOLE SODIUM IV 40 MG VIAL ONE (05:21)
[2020-03-09] MEDS ORDERED: PROMETHAZINE HCL INJ 25 MG/ML VIAL ONE (06:27)
[2020-03-09] MEDS ORDERED: SODIUM CHLORIDE 0.9% 50ML 50 ML ONE (06:27)
[2020-03-09] MEDS: PROMETHAZINE HCL INJ 25 MG in SODIUM CHLORIDE 0.9% 50ML 50 ML IVPB PRN (06:32)
--- NOTE | 2020-03-09 06:36 | RAD ---
PROCEDURE:XR CHEST 2 VIEWS HISTORY:chf COMPARISON: February 23, 2020 FINDINGS: The heart appears unremarkable. A left-sided pacemaker device is seen to be in place.. The lungs are clear there is no alveolar consolidation, effusion or pneumothorax. There are no acute bony or soft tissue abnormalities. IMPRESSION: No acute cardiopulmonary process. Electronically signed by: Mustapha Amado MD 03/09/2020 6:35 AM [employer]
[2020-03-09] MEDS: INSULIN LISPRO 100 UNITS/ML PEN SUBCU SCH ×4 (07:22→21:03)
[2020-03-09] MEDS ORDERED: CARVEDILOL 12.5 MG TAB ONE ×2 (07:59→19:45)
[2020-03-09] MEDS ORDERED: FUROSEMIDE INJ 20 MG/2 ML VIAL ONE (07:59)
[2020-03-09] MEDS: FUROSEMIDE INJ 20 MG/2 ML VIAL IV SCH (08:32)
[2020-03-09] MEDS: CARVEDILOL 12.5 MG TAB PO SCH ×2 (08:32→21:11)
[2020-03-09] MEDS ORDERED: MAGNESIUM SULFATE PREMIX 2GM 2 GM in PREMIX BAG 1 BAG IVPB ONE (11:49)
[2020-03-09] MEDS ORDERED: MAGNESIUM SULFATE PREMIX 2GM 50 ML IVPB ONE (12:22)
--- NOTE | 2020-03-09 12:40 | CT ---
EXAMINATION: Abdomen/Pelvis w/Contrast. HISTORY: 49 years Male. N/V/D RUQ and RLQ pain. . TECHNIQUE: CT ABDOMEN PELVIS WITH IV CONTRAST COMPARISON: Abdomen radiographs 03/08/2020. AP CT 02/22/2020. FINDINGS: Cardiac pacemaker in place. Normal cardiac size without pericardial effusion. No acute lung base finding. Normal-appearing distal esophagus. Normal-appearing gallbladder, adrenals, pancreas, and spleen. Intact normal caliber abdominal aorta with slight calcified atherosclerotic plaque extending into the iliac arteries. Normal caliber IVC. Once again, there is nonspecific liver enlargement with a sagittal dimension of 24.1 cm, previously 25.2 cm. No evidence of focal liver lesion. Normal-appearing kidneys. No renal calculus, mass, or hydronephrosis. No ureteral calculus or distention. Intact anterior abdominal wall without evidence of hernia. No evidence of mesenteric mass or adenopathy. Normal-appearing stomach and duodenum. No small bowel distention in the abdomen and pelvis to suggest intestinal obstruction. No pelvic cul-de-sac free fluid. Normal-appearing urinary bladder, prostate, and seminal vesicles. No definite rectal abnormality. Minimal diverticulosis in descending and proximal sigmoid colon. Minimal diverticulosis also noted in the hepatic flexure of colon. No CT evidence of diverticulitis. No gross ascites, free air, or colonic distention. Normal-appearing cecum, terminal ileum, and retrocecal appendix. No acute fracture or vertebral compression. IMPRESSION: Persisting nonspecific hepatomegaly without focal lesion Minimal diverticulosis without CT evidence of diverticulitis Electronically signed by: Cholo Trevino MD 03/09/2020 12:38 PM [facility]
[2020-03-09] MEDS ORDERED: tiZANidine 4 MG TAB ONE ×2 (14:11→19:45)
[2020-03-09] MEDS ORDERED: AMIODARONE HCL 200 MG TAB ONE (14:11)
--- NOTE | 2020-03-09 14:11 | US ---
EXAM: LIMITED ABDOMINAL ULTRASOUND HISTORY: RUQ ; fatty liver. TECHNIQUE: Grayscale and color Doppler ultrasound images of the right upper quadrant abdomen were obtained. COMPARISON: CT of the abdomen and pelvis from today. FINDINGS: Slightly limited exam due to patient body habitus and extensive bowel gas. Liver: The liver is diffusely echogenic consistent with fatty infiltration. No focal lesion is seen. Normal hepatopetal flow in the main portal vein. No intrahepatic biliary ductal dilatation. The common bile duct measures mm in caliber. No free fluid. Gallbladder: No gallstones or wall thickening. There may be mild gallbladder sludge. The gallbladder wall measures 6 mm in thickness. Sonographic Beaulieu sign is negative. Right kidney: 11.4 x 7.3 x 6.2 cm. No cyst or mass. Normal echotexture. No hydronephrosis. Pancreas: Obscured by overlying bowel gas. Vessels: The visualized inferior vena cava and abdominal aorta are unremarkable. IMPRESSION: 1. No gallstones or evidence of acute cholecystitis. 2. Hepatic steatosis. Electronically signed by: Nelson Galicia MD 03/09/2020 2:10 PM [facility]
[2020-03-09] MEDS: AMIODARONE HCL 200 MG TAB PO SCH (14:14)
[2020-03-09] MEDS: tiZANidine 4 MG TAB PO SCH ×2 (14:15→21:11)
--- NOTE | 2020-03-09 19:15 | PN ---
SUPERVISING PHYSICIAN: Elkin Leiva MD DATE: 03/09/20 SUBJECTIVE: The patient had several episodes of nausea and vomiting last night. It took multiple medications to finally get it controlled. This morning, he says he feels a little better. He has had a little bit of complaint of pain to his right upper quadrant as well as down into the abdominal area which is fairly nonspecific. He denies any actual diarrhea. OBJECTIVE: VITAL SIGNS: Temperature 97.6, pulse 82, blood pressure 195/84, respirations 18, saturation 94% on room air at rest. GENERAL: The patient looks to be resting comfortably in no acute distress. in no active distress. CHEST: Lung sounds were clear to auscultation. CARDIOVASCULAR: Regular rate and rhythm. ABDOMEN: Obese, soft. Some tenderness to palpation in the right upper quadrant and umbilical area. No rebound tenderness or peritoneal signs. Bowel sounds active. EXTREMITIES: Extremities with no edema. NEUROLOGIC: The patient is alert and oriented x3. LABORATORY: White count now normalized at 10,800, hemoglobin 14.8, hematocrit 42.3, platelet count 262,000. Differential is without a left shift. Chemistries today show normal electrolytes. Creatinine 1.22. Blood sugars range between 210 and 228. Magnesium is low at 1.6. Bilirubin is a little elevated at 1.1. Otherwise, ALT and AST were normal. BNP only slightly elevated at 197. MICROBIOLOGY: Blood cultures remain negative after 24 hours. C. difficile toxin A and B was negative. RADIOLOGY: Abdominopelvic CT with contrast shows persisting nonspecific hepatomegaly without focal lesions. There is minimal diverticulosis without CT evidence of diverticulitis. Gallbladder ultrasound per radiologic interpretation shows no gallstones or evidence of acute cholecystitis. There is again note of hepatic steatosis. ASSESSMENT: 1. Nausea, vomiting, associated diarrhea with dehydration, etiology uncertain, possibly related to some gastroparesis. 2. Poorly controlled diabetes mellitus, type 2, probably resulting in #1 with underlying gastroparesis. 3. Elevated D-dimer, persistent from previous admission with no signs of deep venous thrombosis. 4. Acute kidney failure versus chronic renal insufficiency with creatinine now at baseline levels, likely due to prerenal azotemia from dehydration. 5. Persistent electrolyte imbalance in the form of hypomagnesemia, probably due underlying diarrhea. 6. Chronic congestive heart failure without signs of exacerbation, diastolic in etiology with an ejection fraction of 45% on echocardiogram on 02/22/20. 7. Poorly controlled hypertension. 8. Coronary artery disease. 9. Ischemic cardiomyopathy. 10. Hypothyroidism. 11. Chronic gastroesophageal reflux disease. 12. Morbid obesity. PLAN: I did discuss the case with Dr. Jimenez because he was having some mild discomfort on palpation, but his CT and his ultrasounds have all been unremarkable other than fatty liver. We will continue with antiemetics as needed. We will with some IV fluids, but decrease those as I started him on clear liquids and as he starts increasing his oral intake, we will back off on the fluids. I will forego any antibiotics at this point as there are no signs of infection. In regards to the nausea and vomiting, if he does persist, we will try some scheduled Reglan. I am still not sure this is just no related to gastroparesis. If he does have more diarrhea, certainly we will do a culture and another C. difficile. He does remain on DVT prophylaxis, Protonix. We will resume his home medications including amiodarone. In regards to the elevated D- dimer, we will hold off on CT of his chest as he ad contrast with abdominopelvic CT. We will advance his diet as tolerated. At this point, I am not sure it will be beneficial to consult with Dr. Jimenez other than just referring to him as an outpatient and possibly have him do a scope for the persistent GI symptoms. In regards to his hypomagnesemia, we will replace that with magnesium. We will advance his diet as he shows to be tolerating clear liquids once he is no longer having a significant amount of symptoms in regards to nausea and vomiting. We will continue with better control of his blood sugars, monitor is blood pressure closely and treat as needed. Hopefully, we will be able to transition to outpatient management within the next 24 to 48 hours. #[id number] [facility]
[2020-03-10] MEDS ORDERED: METOCLOPRAMIDE HCL INJ 10 MG/2 ML VIAL ONE ×3 (00:04→12:07)
[2020-03-10] MEDS: METOCLOPRAMIDE HCL INJ 10 MG/2 ML VIAL IV SCH ×3 (00:21→12:30)
[2020-03-10] MEDS ORDERED: PANTOPRAZOLE SODIUM TAB 40 MG PO ONE (04:34)
[2020-03-10] MEDS ORDERED: PANTOPRAZOLE SODIUM TAB 40 MG PO SCH (06:30)
[2020-03-10] MEDS: INSULIN LISPRO 100 UNITS/ML PEN SUBCU SCH ×2 (07:39→12:30)
[2020-03-10] MEDS ORDERED: ASPIRIN (CHEWABLE) 81 MG TAB ONE (07:55)
[2020-03-10] MEDS ORDERED: FLUoxetine HCL 20 MG CAP ONE (07:55)
[2020-03-10] MEDS ORDERED: CARVEDILOL 12.5 MG TAB ONE (07:55)
[2020-03-10] MEDS ORDERED: AMIODARONE HCL 200 MG TAB ONE (07:56)
[2020-03-10] MEDS ORDERED: SPIRONOLACTONE 25 MG TAB ONE (07:56)
[2020-03-10] MEDS ORDERED: ATORVASTATIN 20 MG TAB PO ONE (07:56)
[2020-03-10] MEDS ORDERED: LEVOTHYROXINE SODIUM 0.075 MG TAB ONE (07:56)
[2020-03-10] MEDS ORDERED: FUROSEMIDE INJ 20 MG/2 ML VIAL ONE (07:56)
[2020-03-10] MEDS ORDERED: tiZANidine 4 MG TAB ONE (07:56)
--- NOTE | 2020-03-10 08:28 | CONS ---
REASON FOR CONSULTATION: Nausea and vomiting, possible gastroparesis. HISTORY OF PRESENT ILLNESS: This is a 49 year-old male who presented to the Emergency Room for nausea and vomiting times 2 days. He has not been particularly ill, no fevers or chills, he just aches and vomits. He has also had diarrhea, yesterday he says it was multiple times in the day, non-bloody, clear brown stool. He has had a history of similar symptoms, he said going back at least 2 months intermittent. He has been told by GI he had gastroparesis due to his diabetes. He does not have any particular dietary changes that he can offer. He had had a colonoscopy about 5 years ago that was negative. He never had an upper endoscopy. He currently feels better, he had been n.p.o., started on clear liquids. He has no abdominal pain and denies any right upper quadrant pain or history of right upper quadrant pain. He denies any aversion to fatty or any other particular type of meal. He has no chest pain, no shortness of breath, no recent leg swelling, says he has lost about 20 pounds in about two months. PAST MEDICAL HISTORY: 1. He had an RI at least a decade ago. He said it was virus-related. 2. History of congestive heart failure. 3. Type 2 diabetes. 4. Hypertension. 5. 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 6. Renal insufficiency. 7. Hypothyroidism. 8. Gastroesophageal reflux disease. PAST SURGICAL HISTORY: CURRENT MEDICATIONS: 1. Aspirin. 2. Fluoxetine. 3. Lipitor. 4. Carvedilol. 5. Aldactone. 6. Levothyroxine. 7. Metformin. 8. Humalog Insulin. 9. Zofran. 10. Amiodarone. 11. Tizanidine. 12. Phenergan. ALLERGIES: Denies any medication allergies. FAMILY HISTORY: No history of colon cancer. Noncontributory. SOCIAL HISTORY: He quit smoking years ago, denies any significant alcohol, no drug use. REVIEW OF SYSTEMS: As above. HEENT: No fevers, no chills, no headache, no visual changes. Denies sore throat, cough or wheezing, HEART: No chest pain palpations. GI: Denies abdominal pain. : No frequency, dysuria or hematuria. EXTREMITIES: No swelling, no aches or pains. NEUROLOGIC: No focal complaints. PHYSICAL EXAMINATION: VITAL SIGNS: Temperature 97.6, heart rate 90, blood pressure 118/69, respirations are 18 and nonlabored, saturation 96% on room air. GENERAL: He is resting comfortably in bed. He is conscious, alert and oriented and in no distress. He is morbidly obese. HEENT: Normal. CHEST: Clear. HEART: Regular. ABDOMEN: Obese, soft, nontender, no rebound, no guarding, no hernias. No overlying skin changes. No CVA tenderness. EXTREMITIES: No edema, no pain, no Homans sign. LABORATORY: White blood cell count is 10. Hematocrit 42, platelets 262,000. INR 1.0. D-dimer 2300, apparently this is higher than previous admission but so far, no evidence of PE, DVT, DIC or sepsis. BMP is relatively normal. Creatinine 1.2, glucoses range in the mid 200s. Lactic acid was 2 yesterday, magnesium 1.6. Potassium 4.5, transaminase normal. BNP, BMP 197. Urinalysis 500 glucose on admission. No evidence of acute infection. RADIOLOGY: CT scan, abdominal x-ray, chest x-ray and a gallbladder ultrasound. The abdominal film showed enlarged heart, air-fluid level within the stomach, otherwise normal. Chest x-ray showed no acute abnormalities. Abdominal CT showed history of enlarged liver, diverticulosis with no acute process. Gallbladder ultrasound reveals no evidence of gallstones or gallbladder wall thickening. There is hepatic steatosis. Kidneys are normal. IMPRESSION: 49 year-old obese male with coronary vascular disease, diabetes with nausea, vomiting, diarrhea. He has a diagnosis of a history of gastroparesis. He has never and an upper endoscopy or studies for that. I do recommend an EGD, cannot do this today or tomorrow, will likely do it as an outpatient in followup if he continues to do well like he is now. If that us unrevealing a small bowel followthrough could be considered, although the CT scan does not show any evidence of mass or obstruction at this time. The new diarrhea could be something viral illness related. I did discuss with the patient dietary changes to assist with his gastroparesis and his diabetes control. He is interested in losing weight and we will have another discussion about his nutritional overall health in an outpatient setting. I agree with the clear liquids, advance as tolerated and head counselor him on frequent small meals with easy to chew foods and avoiding food that could upset his stomach and aggravate his diabetes. #[id number] [facility]
[2020-03-10] MEDS ORDERED: ASPIRIN (CHEWABLE) 81 MG TAB PO SCH (09:00)
[2020-03-10] MEDS ORDERED: SPIRONOLACTONE 25 MG TAB PO SCH (09:00)
[2020-03-10] MEDS ORDERED: NON-FORMULARY MEDICATION 1 EA MIS (Atorvastatin Calcium [Lipitor] 40 MG) PO SCH (09:00)
[2020-03-10] MEDS ORDERED: LEVOTHYROXINE SODIUM 150 MCG PO SCH (09:00)
[2020-03-10] MEDS ORDERED: FLUoxetine HCL 20 MG CAP PO SCH (09:00)
[2020-03-10] MEDS: CARVEDILOL 12.5 MG TAB PO SCH (09:06)
[2020-03-10] MEDS: AMIODARONE HCL 200 MG TAB PO SCH (09:06)
[2020-03-10] MEDS: tiZANidine 4 MG TAB PO SCH (09:06)
[2020-03-10] MEDS: FUROSEMIDE INJ 20 MG/2 ML VIAL IV SCH (09:06)
[2020-03-10 10:37] VITALS: O2SAT 98
[2020-03-10 13:24] VITALS: BP 124/72; TEMP 97.8
--- NOTE | 2020-03-11 09:02 | DS ---
SUPERVISING PHYSICIAN: Elkin Leiva MD ADMISSION DIAGNOSIS: 1. Nausea, vomiting, diarrhea with dehydration. 2. Poorly controlled diabetes mellitus type 2 with gastroparesis. 3. Leukocytosis that is mild, most likely an inflammatory response. We will monitor for gastroenteritis. 4. Elevated D-dimer with previous admission for elevated D-dimer. There are no signs or symptoms of pulmonary embolism for DVT. 5. Acute kidney failure injury versus chronic renal insufficiency with baseline creatinine of about 0.9 to 1. His admitting creatinine was 1.38. 6. Hypomagnesemia. 7. Elevated transaminase. 8. History of congestive heart failure without exacerbation, diastolic in etiology with an ejection fraction about 45% on echocardiogram on 02/22/20. 9. Hypertension. 10. Coronary artery disease. 11. Ischemic cardiomyopathy. 12. Hypothyroidism. 13. Gastroesophageal reflux disease. 14. Morbid obesity. 15. Hepatic steatosis as evidenced on CT and on ultrasound. DISCHARGE DIAGNOSIS: 1. Gastroparesis due to poorly controlled diabetes resulting in associated nausea and vomiting, resolved with treatment. 2. Poorly controlled diabetes mellitus, type 2. 3. Elevated D-dimer, persistent, with no signs of deep venous thrombosis. 4. Acute on chronic renal insufficiency, likely due to prerenal azotemia, resolved back to baseline levels with fluids. 5. Electrolyte imbalance in the form of hypomagnesemia, due to underlying diarrhea, resolved with replacement. 6. History of chronic congestive heart failure without signs of exacerbation, diastolic in etiology with last echocardiogram showing an ejection fraction of 45% on 02/22/20. 7. Poorly controlled hypertension. 8. Coronary artery disease. 9. Ischemic cardiomyopathy. 10. Hypothyroidism. 11. Chronic gastroesophageal reflux disease. 12. Morbid obesity. REASON FOR HOSPITALIZATION: This is a 49-year-old male patient who came to the Emergency Room due to nausea, vomiting, diarrhea that had been going on for 2 days. He does not have any real abdominal pain but he does have a history of diabetes mellitus and he is poorly compliant. He also has a history of gastroparesis and was actually in the hospital about 3 weeks ago for the same symptoms. At that time, he was treated with Levaquin and Flagyl. He was actually so dehydrated that prior to getting fluids he was hypotensive and had to have Levophed. This time, he received fluids but his vital signs have been stable. He also has a history of congestive heart failure with a fairly significant diastolic dysfunction and an ejection fraction of about 45% from his echocardiogram three weeks ago. His vital signs on presentation were temperature 97.7, heart rate of 102, blood pressure 167/93, respiratory rate 18, oxygen saturation 92% on room air. He received a liter of fluids. His labs were done, his WBCs were slightly elevated at 12.4 but the rest of his CBC was unremarkable. His D-dimer was 3,380 but his prior admission had a D-dimer over 4,000. There was no shortness of breath. His chemistries showed a sodium of 133, potassium 5, chlorides 99, carbon dioxide 19, BUN 24, creatinine 1.38, his baseline creatinine is about 0.9 to 1. Glucose 243, lactic acid 2, magnesium 1.2, bilirubin 1.1. AST 50, ALT 61, creatinine kinase 37, lipase 29, TSH 2.91. Urinalysis showed 500 urine glucose and 3 to 5 WBCs. His C. difficile was negative for both antigen and toxin. Respiratory panel was negative for COVID- 19. Blood cultures were drawn. Abdominal x-ray showed enlarged heart, cardiac device in the left chest wall, elevation of the left hemidiaphragm as before, no pleural effusion or pneumothorax, nondilated bowel gas pattern. No pathological calcification overlying the renal shadows or expected course of the ureter. Air-fluid levels within the stomach. Thoracolumbar spondylosis with phleboliths within the right and left pelvis. He was given Phenergan, Zofran and morphine in the Emergency Room. It did help the nausea and vomiting subside but he continued to be nauseated. He was also given a liter of fluid and was admitted to the Floor in stable condition. LABORATORY: White count on discharge was 10,800, hemoglobin 14.5, hematocrit 42.3. Differential without a left shift. Coagulation studies showed persistently elevated D-dimer at 2380, PT 10.4, PTT 22.3. Chemistries show normal electrolytes with creatinine 1.1. Blood sugars were better controlled, ranging from 153 to 166. Magnesium 1.9, calcium 8.9. On admission, amylase and lipase were normal. BNP was only slightly elevated at 197. Initial magnesium on admission was 1.2. ALT and AST were both elevated and both normalized prior to discharge. MICROBIOLOGY: C. difficile toxin A and B was negative. Respiratory panel was negative for COVID, influenza as well as all other viral and bacterial targets. Please see that report for full details. Blood cultures remain negative at 48 hours. RADIOLOGY: Abdominopelvic CT with contrast showed persistent nonspecific hepatomegaly without focal lesions, minimal diverticulosis without CT evidence of diverticulitis. He had a gallbladder ultrasound per radiologic interpretation which showed no gallstones or evidence of acute cholecystitis, but showed hepatic steatosis. Chest x-ray showed no acute cardiopulmonary process. CONSULTATION: Surgical consultation with Eddi Jimenez MD. Please see his consultation note for details. HOSPITAL COURSE: Mr. Meade was admitted and treated for nausea, vomiting and diarrhea. He was given fluids and showed good resolution of symptoms. He was actually able to tolerate a diet. He was worked up thoroughly with abdominal series, CT of the abdomen and pelvis with contrast, gallbladder and surgical consultation with no acute findings noted. It was felt he was having symptoms related to gastroparesis due to poorly controlled diabetes. On the date of discharge, he was able to tolerate an ADA diet without any complications, no repeated nausea or vomiting. It was discussed with him that some of his diarrhea may be related to his metformin, possible need for transition to extended release metformin to offset those symptoms if it persists. He did have a workup with stool which was negative for C. difficile toxin A and B. Respiratory panel was negative for COVID. Blood cultures remained negative at 48 hours. Vital signs were stable and at discharge, temperature was 97.8, pulse 79, blood pressure 124/72, saturation 98% on room air. PLAN: Mr. Meade was discharged on 03/10/20 with instructions to call Dr. Castro's office on Wednesday to schedule a followup appointment. He is to encourage fluids to prevent dehydration. He was encouraged to advanced his diet as tolerated and to eat smaller boluses of food and to try to decrease his fat intake and better his diet as some of this may be contributing to his symptoms. He was encouraged to keep a log of his blood sugars to followup with Dr. Castro to help better control his blood sugars. He was to hold his metformin until tomorrow due to the fact that he got intravenous dye for his CT. He was given instructions to return to the ER shoulder he have any worsening symptoms or other concerning signs or symptoms. He was to resume all other medications as prior to hospitalization. No new medications were prescribed on discharge as he already had a prescription for Zofran. He was also instructed by Dr. Jimenez to followup with him in the clinic sometime in the next week or so as it is recommended he have at least an EGD and probably colonoscopy if his symptoms were continued. Those can be arranged as outpatient, but Dr. Jimenez did recommend he have both upper and lower scopes. CONDITION ON DISCHARGE: Stable and improving. DISPOSITION: The patient was discharged home. #[id number] [facility]
== END 2020-03-10 14:04 | disposition home or self-care (01) ==
LOC: ER 12:19 → MS 17:55 → INTOOBSV 17:55
PROVIDERS: ADMIT Nurse Practitioner Acute Care; ATTEND Nurse Practitioner Family
DX: E11.43 Type 2 diabetes mellitus with diabetic autonomic (poly)neuropathy (principal); E11.65 Type 2 diabetes mellitus with hyperglycemia; K31.84 Gastroparesis; E86.0 Dehydration; R79.89 Other specified abnormal findings of blood chemistry; N17.9 Acute kidney failure, unspecified; I13.0 Hypertensive heart and chronic kidney disease with heart failure and stage 1 through stage 4 chronic kidney disease, or unspecified chronic kidney disease; E83.42 Hypomagnesemia; E87.8 Other disorders of electrolyte and fluid balance, not elsewhere classified; I50.32 Chronic diastolic (congestive) heart failure; E11.22 Type 2 diabetes mellitus with diabetic chronic kidney disease; N18.9 Chronic kidney disease, unspecified; I25.10 Atherosclerotic heart disease of native coronary artery without angina pectoris; I25.5 Ischemic cardiomyopathy; E03.9 Hypothyroidism, unspecified; K21.9 Gastro-esophageal reflux disease without esophagitis; E66.01 Morbid (severe) obesity due to excess calories; I25.2 Old myocardial infarction; K76.0 Fatty (change of) liver, not elsewhere classified; Z20.828 Contact with and (suspected) exposure to other viral communicable diseases; Z79.4 Long term (current) use of insulin; Z79.82 Long term (current) use of aspirin; Z79.890 Hormone replacement therapy; Z79.899 Other long term (current) drug therapy; Z95.0 Presence of cardiac pacemaker; Z87.891 Personal history of nicotine dependence
CPT/HCPCS: 96361 ×2; 96366; 96367; 96365; 96375 ×2; 96376 ×2; 96372 ×3; J1940 ×2; J1630 ×2; J2060; J2765 ×8; J2270; J2550 ×3; J7030 ×2; A4216 ×3; J3475 ×2; J1815; J7799 ×2; 85379; 80048; 82553; 80053 ×2; 82948 ×7; 36415 ×5; 82150; 81001; 85025 ×2; 82550; 87040; 83690; 83735 ×3; 85730; 85610; 84443; 84484; 83880 ×2; 36416 ×5; 87324; 83605; 74019; 71046; 74177; 76705; 94760 ×4; 99285; 93005; G0378; 87581; 87449; 87486; 87633; 87635